=== PATIENT | male | born 1975 | race African-American/Black ===

== ENCOUNTER 2016-08-31 16:01 | Emergency (ER) | payer OTHER ==
--- NOTE | 2016-08-31 17:14 | ED.PDOC ---
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 Timing/Duration: 1-3 hours Severity: severe Improving Factors: nothing Worsening Factors: nothing Associated Symptoms: other - unavailable patient on ventilator non verbal Allergies/Adverse Reactions: Allergies NO KNOWN ALLERGY Allergy (Verified 05/28/16 04:34) Home Medications: Ambulatory Orders Hydrocodone-Acetaminophen [Lortab 5-325 mg] 1 tab PO Q4H 01/03/15 Metoprolol Tartrate 12.5 mg PEG Q8H PRN 01/03/15 Ondansetron [Zofran Odt] 4 mg PO TID PRN 01/03/15 Aluminum/Magnesium/Simeth 200-200-20 mg/5Ml 30 ml PEG BID 01/26/15 Diazepam [Valium] 5 mg PO Q4H PRN 01/26/15 Ferrous Sulfate 5 ml PO DAILY 01/26/15 Levothyroxine Sodium [Synthroid] 25 mcg PO DAILY 01/26/15 Lorazepam 2 mg PO TID PRN 01/26/15 Magnesium Hydroxide [Milk Of Magnesia] 400 mg PO DAILY PRN 01/26/15 Miconazole Nitrate 2 % Topical 2 % TD BID 01/26/15 Sucralfate Suspension [Carafate Suspension] 1 gm PO QID 01/26/15 fentaNYL PATCH 50 MCG/HR [Duragesic Patch 50 MCG/HR] 50 mcg TD Q72H 01/26/15 Albuterol Sulfate Nebs [Proventil Nebs] 2.5 mg INH Q2H PRN 04/26/15 Ascorbic Acid [Vitamin C] 500 mg PO DAILY 04/26/15 Ferrous Sulfate 300 mg PO DAILY 04/26/15 Valproic Acid Syrup [Depakene Syrup] 5 ml PO TID 04/26/15 Atropine Sulfate (Ophthalmic) [Atropine Sulfate] 1 % SL Q4H PRN 08/04/16 Chlorhexidine Gluconate (Mouth [Chlorhexidine Gluconate] 0.12 % MT BID 08/04/16 Ipratropium/Albuterol [Duoneb] 3 ml INH Q6H 08/04/16 Multiple Vitamin [Multivitamins] 1 cap PO DAILY 08/04/16 Promethazine HCl 25 mg PO Q6H PRN 08/04/16 Review of Systems - Review of Systems Respiratory: States: other - tachypneic,crf,ventilator dependent Cardiology: States: other - tachycardia Past Medical History (General) - Patient Medical History Hx Seizures: Yes Hx Stroke: No Hx Dementia: No Hx Asthma: No Hx of COPD: Yes Hx Cardiac Disorders: Yes Hx Congestive Heart Failure: Yes Hx Pacemaker: No Hx Hypertension: Yes Hx Thyroid Disease: Yes Hx Diabetes: Yes Hx Gastroesophageal Reflux: Yes Hx Renal Disease: No Hx Cancer: No Hx of HIV: No Hx Hepatitis C: No Hx MRSA: Yes MRSA Source:: Wound - Vaccination History Hx Tetanus, Diphtheria Vaccination: No Hx Influenza Vaccination: No Hx Pneumococcal Vaccination: No - Social History Hx Tobacco Use: No Hx Chewing Tobacco Use: No Hx Alcohol Use: No Hx Substance Use: No Hx Substance Use Treatment: No Hx Depression: No Hx Physical Abuse: - unable to abtain Hx Emotional Abuse: No Hx Suspected Abuse: No - Activities of Daily Living Assisted/Assisted Living (if applicable):: [facility] - Female History Patient : No Family Medical History - Family History Mother Family History: Unknown Living Status: Still Living Physical Exam - Physical Exam General Appearance: Other - vegetative state Ears, Nose, Throat: other - dry oral mucosa Neck: other - contracture deformity Respiratory: rhonchi, other - ventilator Cardiovascular/Chest: no gallop, tachycardia Gastrointestinal/Abdominal: no organomegaly, no pulsatile mass Back Exam: other - pressure ulcer g4 Extremity: other - below knee amputation right,contracture deformities Neurologic: other - vegetative state,unresponsive to painful stimulus Skin Exam: warm/dry Progress - Results/Orders Results/Orders: 08/31/16 18:15 URINALYSIS Stat 08/31/16 18:42 Heparin Premix [Heparin/D5w 25,000U/500ML] 500 ml IV ONCE Laboratory Results WBC 13.3 K/mm3 (4.8-10.8) H 08/31/16 17:44 RBC 4.40 M/mm3 (4.70-6.10) L 08/31/16 17:44 Hgb 11.5 gm/dL (14.0-18.0) L 08/31/16 17:44 Hct 37.0 % (42.0-52.0) L 08/31/16 17:44 MCV 83.9 fl (80.0-94.0) 08/31/16 17:44 MCH 26.1 pg (27.0-31.0) L 08/31/16 17:44 MCHC 31.1 g/dL (33.0-37.0) L 08/31/16 17:44 RDW 15.5 % (11.5-14.5) H 08/31/16 17:44 Plt Count 344 K/mm3 (130-400) 08/31/16 17:44 MPV 8.6 fl (7.40-10.4) 08/31/16 17:44 Absolute Neuts (auto) 11.60 K/uL (1.8-6.8) H 08/31/16 17:44 Absolute Lymphs (auto) 1.00 K/uL (1.0-3.4) 08/31/16 17:44 Absolute Monos (auto) 0.50 K/uL (0.2-0.8) 08/31/16 17:44 Absolute Eos (auto) 0.00 K/uL (0.0-0.4) 08/31/16 17:44 Absolute Basos (auto) 0.10 K/uL (0.0-0.1) 08/31/16 17:44 Neutrophils % 87.5 % (42.0-78.0) H 08/31/16 17:44 Lymphocytes % 7.9 % (20.0-50.0) L 08/31/16 17:44 Monocytes % 4.0 % (2.0-9.0) 08/31/16 17:44 Eosinophils % 0.2 % (1.0-5.0) L 08/31/16 17:44 Basophils % 0.4 % (0.0-2.0) 08/31/16 17:44 PT 13.3 SECONDS (9.4-12.5) H 08/31/16 17:44 INR 1.180 08/31/16 17:44 PTT (SP) 47.3 SECONDS (25.1-36.5) H 08/31/16 17:44 Sodium 141 mmol/L (135-145) 08/31/16 17:44 Potassium 3.6 mmol/L (3.6-5.0) 08/31/16 17:44 Chloride 102 mmol/L (101-111) 08/31/16 17:44 Carbon Dioxide 27 mmol/L (21-31) 08/31/16 17:44 Anion Gap 15.6 (12-18) 08/31/16 17:44 BUN 24 mg/dL (7-18) H 08/31/16 17:44 Creatinine 0.61 mg/dL (0.6-1.3) 08/31/16 17:44 BUN/Creatinine Ratio 39.3 (10-20) H 08/31/16 17:44 Random Glucose 93 mg/dL (70-105) 08/31/16 17:44 Serum Osmolality 285.0 mOsm/L (275-295) 08/31/16 17:44 Calcium 9.7 mg/dL (8.4-10.2) 08/31/16 17:44 Magnesium 1.9 mg/dL (1.8-2.5) 08/31/16 17:44 Total Bilirubin 0.4 mg/dL (0.2-1.0) 08/31/16 17:44 AST 32 IU/L (10-42) 08/31/16 17:44 ALT 36 IU/L (10-60) 08/31/16 17:44 Alkaline Phosphatase 145 IU/L (42-121) H 08/31/16 17:44 Creatine Kinase 83 IU/L (38-174) 08/31/16 17:44 CK-MB (CK-2) 3.4 ng/mL (0.0-4.4) 08/31/16 17:44 CK-MB (CK-2) % Not Reportable 08/31/16 17:44 Troponin I 0.06 ng/mL (0.01-0.05) H 08/31/16 17:44 B-Natriuretic Peptide 822.0 pg/ml (0-100) H* 08/31/16 17:44 Serum Total Protein 8.3 gm/dL (6.4-8.2) H 08/31/16 17:44 Albumin 3.1 g/dl (3.2-5.5) L 08/31/16 17:44 Globulin 5.2 gm/dL (2.3-3.5) H 08/31/16 17:44 Albumin/Globulin Ratio 0.6 (1.1-1.9) L 08/31/16 17:44 - EKG/XRAY/CT EKG: Tachy, ST elevation, Abnormal Q waves Departure - Departure Clinical Impression: Myocardial infarction of inferolateral wall, Anoxic brain damage, not elsewhere classified, Ventilator dependent Respiratory failure, chronic Qualifiers: Respiratory failure complication: unspecified whether with hypoxia or hypercapnia Qualifier Code: (J96.10) Chronic respiratory failure, unspecified whether with hypoxia or hypercapnia Time of Disposition: 22:08 - D/W Dr. Herring-MARGOTH LYONS Disposition: Transfer to Hospital Departure Forms: ED Discharge - Pt. Copy, Patient Portal Self Enrollment Referrals: ALPHONSE LA [Primary Care Provider] - 1-2 Weeks Home Medications: Ambulatory Orders Hydrocodone-Acetaminophen [Lortab 5-325 mg] 1 tab PO Q4H 01/03/15 Metoprolol Tartrate 12.5 mg PEG Q8H PRN 01/03/15 Ondansetron [Zofran Odt] 4 mg PO TID PRN 01/03/15 Aluminum/Magnesium/Simeth 200-200-20 mg/5Ml 30 ml PEG BID 01/26/15 Diazepam [Valium] 5 mg PO Q4H PRN 01/26/15 Ferrous Sulfate 5 ml PO DAILY 01/26/15 Levothyroxine Sodium [Synthroid] 25 mcg PO DAILY 01/26/15 Lorazepam 2 mg PO TID PRN 01/26/15 Magnesium Hydroxide [Milk Of Magnesia] 400 mg PO DAILY PRN 01/26/15 Miconazole Nitrate 2 % Topical 2 % TD BID 01/26/15 Sucralfate Suspension [Carafate Suspension] 1 gm PO QID 01/26/15 fentaNYL PATCH 50 MCG/HR [Duragesic Patch 50 MCG/HR] 50 mcg TD Q72H 01/26/15 Albuterol Sulfate Nebs [Proventil Nebs] 2.5 mg INH Q2H PRN 04/26/15 Ascorbic Acid [Vitamin C] 500 mg PO DAILY 04/26/15 Ferrous Sulfate 300 mg PO DAILY 04/26/15 Valproic Acid Syrup [Depakene Syrup] 5 ml PO TID 04/26/15 Atropine Sulfate (Ophthalmic) [Atropine Sulfate] 1 % SL Q4H PRN 08/04/16 Chlorhexidine Gluconate (Mouth [Chlorhexidine Gluconate] 0.12 % MT BID 08/04/16 Ipratropium/Albuterol [Duoneb] 3 ml INH Q6H 08/04/16 Multiple Vitamin [Multivitamins] 1 cap PO DAILY 08/04/16 Promethazine HCl 25 mg PO Q6H PRN 08/04/16
--- NOTE | 2016-08-31 17:39 | RAD ---
EXAM DESCRIPTION: XR CHEST 1 VIEW CLINICAL HISTORY: sob COMPARISON: August 04, 2016. FINDINGS: Cardiac silhouette is enlarged, unchanged compared with the prior exam. Patient is rotated. There is a tracheostomy tube. Abnormal opacity in the left lower lung and blunted costophrenic angle is unchanged. There is indistinctness of the pulmonary vessels which could be secondary to pulmonary edema versus interstitial lung disease, this is unchanged compared with the prior examination. There is mild blunting of the right costophrenic angle. There is no pneumothorax. IMPRESSION: Indistinctness of the pulmonary vessels could be secondary to pulmonary edema. Similar findings were noted in the prior exam. Blunted left costophrenic angle and increased opacity in the left lower lung is unchanged compared with the prior exam and could be secondary to pleural fluid and atelectasis. There is mild blunting of the right costophrenic angle which could also represent small amount of pleural fluid. Electronically signed by: Paul Hurt 08/31/2016 17:37
[2016-08-31] MEDS ORDERED: HEPARIN PREMIX 500 ML IV ONE (18:42)
[2016-08-31] MEDS ORDERED: HEPARIN SODIUM (PORCINE) 5,000 U/ML VIAL IV ONE (18:44)
[2016-08-31] MEDS ORDERED: HEPARIN PREMIX 500 ML IV SCH (18:45)
[2016-08-31 22:10] VITALS: O2SAT 98
[2016-08-31 22:35] VITALS: BP 118/58; TEMP 98.9
== END 2016-08-31 22:35 | disposition short-term general hospital (02) ==
LOC: ER 16:01
DX: I21.19 ST elevation (STEMI) myocardial infarction involving other coronary artery of inferior wall (principal); G93.1 Anoxic brain damage, not elsewhere classified; Z99.11 Dependence on respirator [ventilator] status; J96.10 Chronic respiratory failure, unspecified whether with hypoxia or hypercapnia; Z79.899 Other long term (current) drug therapy; J44.9 Chronic obstructive pulmonary disease, unspecified; I11.0 Hypertensive heart disease with heart failure; I50.9 Heart failure, unspecified; E07.9 Disorder of thyroid, unspecified; E11.9 Type 2 diabetes mellitus without complications; K21.9 Gastro-esophageal reflux disease without esophagitis; Z86.14 Personal history of Methicillin resistant Staphylococcus aureus infection
CPT/HCPCS: 36415; 71010; 80048; 80053; 82550; 82553; 83880; 84484; 85025; 85610; 85730; 93005; 94002; J1644

== ENCOUNTER 2016-12-25 13:46 | Emergency (ER) | payer OTHER ==
[2016-12-25] MEDS ORDERED: IBUPROFEN SUSP 100 MG/5 ML UD GT ONE (13:52)
[2016-12-25] MEDS ORDERED: METOPROLOL TARTRATE INJ 5 MG/5 ML VIAL IV ONE (13:59)
[2016-12-25] MEDS ORDERED: SODIUM CHLORIDE 0.9% 1000ML 750 ML IVS ONE (14:00)
[2016-12-25] MEDS ORDERED: CEFEPIME 2 GM in SODIUM CHL 0.9% 50ML MIN-BAG+ 50 ML IVPB ONE (14:01)
[2016-12-25] MEDS ORDERED: SODIUM CHL 0.9% 50ML MIN-BAG+ 0 ML IVPB ONE (14:59)
[2016-12-25] MEDS ORDERED: CEFEPIME 2 GM VIAL IVPB ONE ×2 (14:59→15:07)
--- NOTE | 2016-12-25 15:03 | RAD ---
Obstructive series 2 view abdomen and chest INDICATION: Fever ventilator dependent IMPRESSION: Comparison is from May 24, 2016. Interval improvement in the lungs with persistent atelectasis and mild infiltrate in the left base. Cardiomegaly. Tracheostomy tube in place with tip just above the violet. No free air identified. No pneumothorax. Vascular stents/grafts are noted in the abdomen. No abdominal obstruction. There is a prominent volume of stool in the central pelvis/rectal region. Electronically signed by: Sedrick Pryor MD 12/25/2016 3:03 PM CDT
[2016-12-25] MEDS ORDERED: SODIUM CHL 0.9% 50ML MIN-BAG+ 50 ML IVPB ONE (15:07)
[2016-12-25] MEDS ORDERED: IBUPROFEN SUSP 100 MG/5 ML UD PO ONE (15:24)
[2016-12-25] MEDS ORDERED: IBUPROFEN SUSP 100 MG/5 ML UD ONE (15:24)
[2016-12-25] MEDS ORDERED: SODIUM CHLORIDE 0.9% 1000ML 1,000 ML IVS ONE (16:15)
[2016-12-25] MEDS ORDERED: methylPREDNISolone SODIUM SUC 125 MG/2 ML VIAL IV ONE (16:15)
[2016-12-25] MEDS ORDERED: FLUCONAZOLE IV 200 MG in PREMIX BAG 1 BAG IVPB ONE (16:16)
[2016-12-25] MEDS ORDERED: SODIUM CHLORIDE 0.9% 1000ML 1,000 ML ONE (16:16)
--- NOTE | 2016-12-25 16:19 | US ---
Abdominal sonogram Limited right upper quadrant INDICATION: Elevated liver functions fever abdominal pain TECHNIQUE: Grayscale sonogram with color Doppler right upper quadrant FINDINGS: IVC is normal in caliber. The right kidney is isoechoic with liver correlate with renal function as this is nonspecific in etiology but may represent parenchymal renal disease. The main portal vein appears patent. There is a globular region of calcified stones and sludge within the gallbladder. Additional sludge is noted near the neck. Gallbladder wall thickness is upper limits normal 2.5 mm. No pericholecystic edema/fluid. Common bile duct is normal less than 5 mm in diameter. The sludge and stones and gallbladder appear to be fixed. No definite soft tissue mass however. Follow-up may be useful to document movement of this to exclude an underlying lesion. The liver is enlarged measuring 19 cm in length the mid axillary line. This may relate to hepatic inflammation but is nonspecific. IMPRESSION: Enlarged liver Tumefactive sludge with stones in the gallbladder without active inflammation or wall thickening see above discussion Isoechoic right kidney correlate with renal function as this can be a sign of parenchymal renal disease Electronically signed by: Sedrick Pryor MD 12/25/2016 4:19 PM CDT
[2016-12-25] MEDS ORDERED: FLUCONAZOLE IV 100 ML IVPB ONE (16:41)
[2016-12-25] MEDS ORDERED: NOREPINEPHRINE BITARTRATE 4 MG in DEXTROSE 5% 250ML 250 ML IVPB ONE (17:04)
[2016-12-25] MEDS ORDERED: NOREPINEPHRINE BITARTRATE 4 MG/4 ML VIAL IVPB ONE (17:08)
[2016-12-25] MEDS ORDERED: DEXTROSE 5% 250ML 250 ML ONE (17:08)
[2016-12-25] MEDS ORDERED: VANCOMYCIN HCL INJ 1,000 MG in SODIUM CHLORIDE 0.9% 250ML 250 ML IVPB ONE (17:14)
[2016-12-25] MEDS ORDERED: VANCOMYCIN HCL INJ 1,000 MG VIAL IVPB ONE (17:25)
[2016-12-25] MEDS ORDERED: SODIUM CHLORIDE 0.9% 250ML 250 ML ONE (17:26)
--- NOTE | 2016-12-25 17:30 | ED.PDOC ---
History of Present Illness - General Chief Complaint: General Time Seen by Provider: 12/25/16 13:52 Source: EMS notes reviewed, [facility] Exam Limitations: clinical condition - History of Present Illness Initial Comments: The patient is a 41-year-old -English male presenting to the ER from the long-term ventilator care facility due to fever and tachycardia. The patient has had a history of multiple pneumonias and multiple urinary tract infections. He does have an indwelling Hobson catheter which urine is actually extremely cloudy. The patient had fever up to 102. Systolic blood pressures upon arrival were around 80. The patient was diaphoretic and tachycardic at around 150 bpm. It is a sinus tachycardia. Lungs are actually clear and he is maintaining an adequate oxygen saturation on his normal ventilator settings. The facility have given him a dose of Levaquin per his G-tube earlier in the day. They actually sent off a urinalysis 3 days ago but have not gotten a culture back on that. The patient is not exhibiting any evidence of pain with palpation of the abdomen. He does have a stage II ulcer posteriorly. This is not new. Lungs are actually fairly clear for this patient. Timing/Duration: 1 week Severity: severe Improving Factors: nothing Allergies/Adverse Reactions: Allergies NO KNOWN ALLERGY Allergy (Verified 05/28/16 04:34) Home Medications: Ambulatory Orders Hydrocodone-Acetaminophen [Lortab 5-325 mg] 1 tab PO Q4H 01/03/15 Metoprolol Tartrate 12.5 mg PEG Q8H PRN 01/03/15 Ondansetron [Zofran Odt] 4 mg PO TID PRN 01/03/15 Aluminum/Magnesium/Simeth 200-200-20 mg/5Ml 30 ml PEG BID 01/26/15 Diazepam [Valium] 5 mg PO Q4H PRN 01/26/15 Ferrous Sulfate 5 ml PO DAILY 01/26/15 Levothyroxine Sodium [Synthroid] 25 mcg PO DAILY 01/26/15 Lorazepam 2 mg PO TID PRN 01/26/15 Magnesium Hydroxide [Milk Of Magnesia] 400 mg PO DAILY PRN 01/26/15 Miconazole Nitrate 2 % Topical 2 % TD BID 01/26/15 Sucralfate Suspension [Carafate Suspension] 1 gm PO QID 01/26/15 fentaNYL PATCH 50 MCG/HR [Duragesic Patch 50 MCG/HR] 50 mcg TD Q72H 01/26/15 Albuterol Sulfate Nebs [Proventil Nebs] 2.5 mg INH Q2H PRN 04/26/15 Ascorbic Acid [Vitamin C] 500 mg PO DAILY 04/26/15 Ferrous Sulfate 300 mg PO DAILY 04/26/15 Valproic Acid Syrup [Depakene Syrup] 5 ml PO TID 04/26/15 Atropine Sulfate (Ophthalmic) [Atropine Sulfate] 1 % SL Q4H PRN 08/04/16 Chlorhexidine Gluconate (Mouth [Chlorhexidine Gluconate] 0.12 % MT BID 08/04/16 Ipratropium/Albuterol [Duoneb] 3 ml INH Q6H 08/04/16 Multiple Vitamin [Multivitamins] 1 cap PO DAILY 08/04/16 Promethazine HCl 25 mg PO Q6H PRN 08/04/16 Review of Systems - Review of Systems Review of Systems: 12/25/16 17:29 nable to obtain review of systems secondary to patient's chronic clinical condition. Past Medical History (General) - Patient Medical History Hx Seizures: Yes Hx Stroke: No Hx Dementia: No Hx Asthma: No Hx of COPD: Yes Hx Cardiac Disorders: Yes Hx Congestive Heart Failure: Yes Hx Pacemaker: No Hx Hypertension: Yes Hx Thyroid Disease: Yes Hx Diabetes: Yes Hx Gastroesophageal Reflux: Yes Hx Renal Disease: No Hx Cancer: No Hx of HIV: No Hx Hepatitis C: No Hx MRSA: Yes MRSA Source:: Wound - Vaccination History Hx Tetanus, Diphtheria Vaccination: No Hx Influenza Vaccination: No Hx Pneumococcal Vaccination: No - Social History Hx Tobacco Use: No Hx Chewing Tobacco Use: No Hx Alcohol Use: No Hx Substance Use: No Hx Substance Use Treatment: No Hx Depression: No Hx Physical Abuse: - unable to abtain Hx Emotional Abuse: No Hx Suspected Abuse: No - Female History Patient : No Family Medical History - Family History Mother Family History: Unknown Living Status: Still Living Physical Exam - Physical Exam General Appearance: Anxious, Ill Appearing - diaphoretic Eye Exam: bilateral normal Ears, Nose, Throat: normal ENT inspection - mucous membranes are mildly dry Neck: non-tender, full range of motion, supple - tracheostomy is in place Respiratory: chest non-tender, lungs clear - with the exception of chronic persistent bibasilar rales, no respiratory distress, no accessory muscle use - he is ventilator dependent of course Cardiovascular/Chest: normal peripheral pulses, no edema, tachycardia - A sinus tachycardia Peripheral Pulses: radial,right: 2+, radial,left: 2+ Gastrointestinal/Abdominal: other - moderately distended which is not unusual. No evidence of tenderness to palpation. G-tube is in place. Rectal Exam: deferred Back Exam: normal inspection - with the exception of the chronic decubitus ulcer Extremity: other - patient has decreased range of motion of his left lower extremity. 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 Neurologic: alert Skin Exam: diaphoresis Comments: Vital Signs - 8 hr 12/25/16 12/25/16 14:11 15:15 Respiratory 24 23 Rate Respiratory 20 23 Rate [Volume Control Data] O2 Sat by Pulse 94 L Oximetry Progress - Progress Progress: 12/25/16 17:34 the patient is a 41-year-old male presenting to the emergency room secondary to what appears to be urosepsis. The patient has received a dose of cefepime based on his last urine culture here. He should have a urine culture returning to his long-term care facility hopefully tomorrow as it was sent 3 days ago. The patient did receive a dose of Levaquin per G-tube from the facility earlier today. He does appear to have some hypotension with sepsis. He has had 2 L of IV fluids. We are starting low-dose levophed to maintain a systolic blood pressure preferably around 100. The patient does have significant sinus tachycardia which is not unusual with him. he does normally respond well to a beta brenden but his blood pressures are not high enough to give a small dose. He did receive a small dose of Ativan upon arrival here his anxiety does tend to cause his heart rate to accelerate. He does also have a history of increased liver function test with sustained tachycardia. He does having underlying enlargement of his liver on the ultrasound. The gallbladder ultrasound is fairly reassuring only showing some mild thickening of the gallbladder wall. No evidence of pneumonia at this time. Blood cultures have been performed. The patient is being transferred for higher level of care. - Results/Orders Results/Orders: Laboratory Tests 12/25/16 12/25/16 12/25/16 14:11 14:11 14:11 WBC 5.7 RBC 3.42 L Hgb 9.3 L Hct 28.8 L MCV 84.1 MCH 27.1 MCHC 32.5 L RDW 16.5 H Plt Count 122 L MPV 10.3 Absolute Neuts (auto) 5.40 Absolute Lymphs (auto) 0.30 L Absolute Monos (auto) 0.10 L Absolute Eos (auto) 0.00 Absolute Basos (auto) 0.00 Neutrophils % 93.7 H Lymphocytes % 4.6 L Monocytes % 1.2 L Eosinophils % 0.1 L Basophils % 0.4 PT 13.9 H INR 1.230 PTT (SP) 35.1 Sodium 135 Potassium 4.0 Chloride 100 L Carbon Dioxide 27 Anion Gap 12.0 BUN 38 H Creatinine 1.40 H BUN/Creatinine Ratio 27.1 H Random Glucose 79 Serum Osmolality 278.1 Lactic Acid Calcium 8.6 Total Bilirubin 1.0 AST 124 H ALT 155 H Alkaline Phosphatase 270 H Serum Total Protein 7.0 Albumin 2.7 L Globulin 4.3 H Albumin/Globulin Ratio 0.6 L Amylase 26 L Lipase 14 L Urine Color Urine Appearance Urine pH Ur Specific [place] Urine Protein Urine Glucose (UA) Urine Ketones Urine Blood Urine Nitrite Urine Bilirubin Urine Urobilinogen Ur Leukocyte Esterase Urine RBC Urine WBC Ur Epithelial Cells Urine Bacteria 12/25/16 12/25/16 14:11 16:30 WBC RBC Hgb Hct MCV MCH MCHC RDW Plt Count MPV Absolute Neuts (auto) Absolute Lymphs (auto) Absolute Monos (auto) Absolute Eos (auto) Absolute Basos (auto) Neutrophils % Lymphocytes % Monocytes % Eosinophils % Basophils % PT INR PTT (SP) Sodium Potassium Chloride Carbon Dioxide Anion Gap BUN Creatinine BUN/Creatinine Ratio Random Glucose Serum Osmolality Lactic Acid 2.2 Calcium Total Bilirubin AST ALT Alkaline Phosphatase Serum Total Protein Albumin Globulin Albumin/Globulin Ratio Amylase Lipase Urine Color Yellow Urine Appearance Cloudy Urine pH 5.5 Ur Specific [place] 1.015 Urine Protein >=300 H Urine Glucose (UA) Negative Urine Ketones Negative Urine Blood Moderate H Urine Nitrite Negative Urine Bilirubin Negative Urine Urobilinogen 1.0 Ur Leukocyte Esterase Large H Urine RBC 40-50 H Urine WBC Tntc H Ur Epithelial Cells 0 Urine Bacteria 4+ H abdominal series shows persistent atelectasis in the left lower lobe. Moderate stool in the lower abdomen. No evidence of obstruction. No evidence of perforation. Right upper quadrant ultrasound shows a moderately enlarged liver. There is question of parenchymal disease of the right kidney. Gallbladder shows a borderline wall thickness of 2.5 mm. There is some sludge and some stones in the gallbladder but no evidence of dilation of the common bile duct at 5 mm. No pericholecystic fluid or edema. Departure - Departure Clinical Impression: UTI (urinary tract infection) due to urinary indwelling Hobson catheter, Shock Sepsis Qualifiers: Sepsis type: sepsis due to unspecified organism Qualified Code(s): A41.9 - Sepsis, unspecified organism Disposition: Transfer to Hospital Referrals: ALPH[facility] [Primary Care Provider] - 1-2 Weeks Home Medications: Ambulatory Orders Hydrocodone-Acetaminophen [Lortab 5-325 mg] 1 tab PO Q4H 01/03/15 Metoprolol Tartrate 12.5 mg PEG Q8H PRN 01/03/15 Ondansetron [Zofran Odt] 4 mg PO TID PRN 01/03/15 Aluminum/Magnesium/Simeth 200-200-20 mg/5Ml 30 ml PEG BID 01/26/15 Diazepam [Valium] 5 mg PO Q4H PRN 01/26/15 Ferrous Sulfate 5 ml PO DAILY 01/26/15 Levothyroxine Sodium [Synthroid] 25 mcg PO DAILY 01/26/15 Lorazepam 2 mg PO TID PRN 01/26/15 Magnesium Hydroxide [Milk Of Magnesia] 400 mg PO DAILY PRN 01/26/15 Miconazole Nitrate 2 % Topical 2 % TD BID 01/26/15 Sucralfate Suspension [Carafate Suspension] 1 gm PO QID 01/26/15 fentaNYL PATCH 50 MCG/HR [Duragesic Patch 50 MCG/HR] 50 mcg TD Q72H 01/26/15 Albuterol Sulfate Nebs [Proventil Nebs] 2.5 mg INH Q2H PRN 04/26/15 Ascorbic Acid [Vitamin C] 500 mg PO DAILY 04/26/15 Ferrous Sulfate 300 mg PO DAILY 04/26/15 Valproic Acid Syrup [Depakene Syrup] 5 ml PO TID 04/26/15 Atropine Sulfate (Ophthalmic) [Atropine Sulfate] 1 % SL Q4H PRN 08/04/16 Chlorhexidine Gluconate (Mouth [Chlorhexidine Gluconate] 0.12 % MT BID 08/04/16 Ipratropium/Albuterol [Duoneb] 3 ml INH Q6H 08/04/16 Multiple Vitamin [Multivitamins] 1 cap PO DAILY 08/04/16 Promethazine HCl 25 mg PO Q6H PRN 08/04/16 Transfer to Outside Facility - Transfer Information Accepting Provider:: dr walker Accepting Facility: [facility] Reason for Transfer: ICU
[2016-12-25 17:59] VITALS: TEMP 101.6
[2016-12-25 18:17] VITALS: BP 102/42; O2SAT 97
== END 2016-12-25 18:45 | disposition short-term general hospital (02) ==
LOC: ER 13:46
DX: T83.511A Infection and inflammatory reaction due to indwelling urethral catheter, initial encounter (principal); A41.9 Sepsis, unspecified organism; Z99.11 Dependence on respirator [ventilator] status; R00.0 Tachycardia, unspecified; Z79.899 Other long term (current) drug therapy; J44.9 Chronic obstructive pulmonary disease, unspecified; I11.0 Hypertensive heart disease with heart failure; I50.9 Heart failure, unspecified; E03.9 Hypothyroidism, unspecified; K21.9 Gastro-esophageal reflux disease without esophagitis; Z86.14 Personal history of Methicillin resistant Staphylococcus aureus infection
CPT/HCPCS: 36415; 74020; 76775; 80053; 81001; 82150; 83605; 83690; 85025; 85610; 85730; 87040; 87086; 87088; 87186; 87804; 94002; 94770; J0692; J1450; J2060; J2930; J3370; J7030; J7050; J7060

== ENCOUNTER 2016-12-29 13:35 | Emergency (ER) | payer OTHER ==
[2016-12-29] MEDS ORDERED: POTASSIUM CHLORIDE IV ONE (14:37)
[2016-12-29] MEDS ORDERED: DEXTROSE 5% IV ONE (14:37)
--- NOTE | 2016-12-29 14:47 | ED.PDOC ---
History of Present Illness - General Chief Complaint: General Stated Complaint: Staff is uncomfortable taking care of the patient Time Seen by Provider: 12/29/16 13:35 Source: RN notes reviewed, Vital Signs reviewed, RN/MD Exam Limitations: clinical condition - History of Present Illness Initial Comments: Patient sent from chronic care facility due to gastroparesis. Patient was discharged from [facility] yesterday with diagnosis of urosepsis on appropriate antibiotics. Nurse noticed this morning his abdomen appeared distended and found he had a 700cc residual in his stomach so his feeding tube was stopped for 6 hours. He continued to have a 500cc residual. Physician is concerned about obstruction and that he may be getting worse in regards to his sepsis. His WBC count at discharge from [facility] was 14. Patient is on Vent and is noncommunicative. Timing/Duration: 24 hours Severity: mild Improving Factors: medication Worsening Factors: nothing Allergies/Adverse Reactions: Allergies NO KNOWN ALLERGY Allergy (Verified 05/28/16 04:34) Home Medications: Ambulatory Orders Hydrocodone-Acetaminophen [Lortab 5-325 mg] 1 tab PO Q4H 01/03/15 Metoprolol Tartrate 12.5 mg PEG Q8H PRN 01/03/15 Ondansetron [Zofran Odt] 4 mg PO TID PRN 01/03/15 Aluminum/Magnesium/Simeth 200-200-20 mg/5Ml 30 ml PEG BID 01/26/15 Diazepam [Valium] 5 mg PO Q4H PRN 01/26/15 Ferrous Sulfate 5 ml PO DAILY 01/26/15 Levothyroxine Sodium [Synthroid] 25 mcg PO DAILY 01/26/15 Lorazepam 2 mg PO TID PRN 01/26/15 Magnesium Hydroxide [Milk Of Magnesia] 400 mg PO DAILY PRN 01/26/15 Miconazole Nitrate 2 % Topical 2 % TD BID 01/26/15 Sucralfate Suspension [Carafate Suspension] 1 gm PO QID 01/26/15 fentaNYL PATCH 50 MCG/HR [Duragesic Patch 50 MCG/HR] 50 mcg TD Q72H 01/26/15 Albuterol Sulfate Nebs [Proventil Nebs] 2.5 mg INH Q2H PRN 04/26/15 Ascorbic Acid [Vitamin C] 500 mg PO DAILY 04/26/15 Ferrous Sulfate 300 mg PO DAILY 04/26/15 Valproic Acid Syrup [Depakene Syrup] 5 ml PO TID 04/26/15 Atropine Sulfate (Ophthalmic) [Atropine Sulfate] 1 % SL Q4H PRN 08/04/16 Chlorhexidine Gluconate (Mouth [Chlorhexidine Gluconate] 0.12 % MT BID 08/04/16 Ipratropium/Albuterol [Duoneb] 3 ml INH Q6H 08/04/16 Multiple Vitamin [Multivitamins] 1 cap PO DAILY 08/04/16 Promethazine HCl 25 mg PO Q6H PRN 08/04/16 Review of Systems - Review of Systems Unable to Obtain Due To: condition, intubated Past Medical History (General) - Patient Medical History Hx Seizures: Yes Hx Stroke: No Hx Dementia: No Hx Asthma: No Hx of COPD: Yes Hx Cardiac Disorders: Yes Hx Congestive Heart Failure: Yes Hx Pacemaker: No Hx Hypertension: Yes Hx Thyroid Disease: Yes Hx Diabetes: Yes Hx Gastroesophageal Reflux: Yes Hx Renal Disease: No Hx Cancer: No Hx of HIV: No Hx Hepatitis C: No Hx MRSA: Yes MRSA Source:: Wound - Vaccination History Hx Tetanus, Diphtheria Vaccination: No Hx Influenza Vaccination: No Hx Pneumococcal Vaccination: No - Social History Hx Tobacco Use: No Hx Chewing Tobacco Use: No Hx Alcohol Use: No Hx Substance Use: No Hx Substance Use Treatment: No Hx Depression: No Hx Physical Abuse: - unable to abtain Hx Emotional Abuse: No Hx Suspected Abuse: No - Activities of Daily Living Shelter/Assisted Living (if applicable):: [facility] - Female History Patient : No Family Medical History - Family History Mother Family History: Unknown Living Status: Still Living Physical Exam - Physical Exam General Appearance: No apparent distress Respiratory: chest non-tender, lungs clear, normal breath sounds, no respiratory distress - No Vent Cardiovascular/Chest: regular rate, rhythm, no edema, no gallop, no murmur Gastrointestinal/Abdominal: normal bowel sounds, non tender, soft, mass - Pulsitile mass RLQ Neurologic: other - Intubated and unresponsive Progress - Progress Progress: 12/29/16 17:45 Sodium is improved @ 147, Cl still up slightly @ 116. No obstruction or cause for his gastroparesis. Spoke with Stephenie @ [facility] regarding transferring patient back and need for him to receive water through his peg tube. - Results/Orders Results/Orders: Laboratory Tests 12/29/16 12/29/16 14:00 14:00 WBC 13.0 H RBC 3.42 L Hgb 9.2 L Hct 28.8 L MCV 84.3 MCH 26.9 L MCHC 31.9 L RDW 16.4 H Plt Count 174 MPV 9.8 Absolute Neuts (auto) 10.70 H Absolute Lymphs (auto) 1.40 Absolute Monos (auto) 0.80 Absolute Eos (auto) 0.00 Absolute Basos (auto) 0.10 Neutrophils % 82.0 H Lymphocytes % 10.9 L Monocytes % 6.4 Eosinophils % 0.2 L Basophils % 0.5 Sodium 151 H Potassium 3.3 L Chloride 117 H* Carbon Dioxide 27 Anion Gap 10.3 L BUN 35 H Creatinine 0.69 BUN/Creatinine Ratio 50.7 H Random Glucose 106 H Serum Osmolality 308.2 H Calcium 8.6 Total Bilirubin 0.6 AST 21 ALT 75 H Alkaline Phosphatase 159 H Serum Total Protein 6.6 Albumin 2.5 L Globulin 4.1 H Albumin/Globulin Ratio 0.6 L - EKG/XRAY/CT XRAY: abdomen - Stable except resolution of fecal impaction Departure - Departure Clinical Impression: Dehydration, Nondiabetic gastroparesis Time of Disposition: 17:47 Disposition: Discharge to SNF Condition: Fair Departure Forms: ED Discharge - Pt. Copy, Patient Portal Self Enrollment Instructions: DI for Dehydration -- Adult, Gastroparesis Diet: resume usual diet Referrals: ALPHONSE [facility] [Primary Care Provider] - 1-2 Weeks Home Medications: Ambulatory Orders Hydrocodone-Acetaminophen [Lortab 5-325 mg] 1 tab PO Q4H 01/03/15 Metoprolol Tartrate 12.5 mg PEG Q8H PRN 01/03/15 Ondansetron [Zofran Odt] 4 mg PO TID PRN 01/03/15 Aluminum/Magnesium/Simeth 200-200-20 mg/5Ml 30 ml PEG BID 01/26/15 Diazepam [Valium] 5 mg PO Q4H PRN 01/26/15 Ferrous Sulfate 5 ml PO DAILY 01/26/15 Levothyroxine Sodium [Synthroid] 25 mcg PO DAILY 01/26/15 Lorazepam 2 mg PO TID PRN 01/26/15 Magnesium Hydroxide [Milk Of Magnesia] 400 mg PO DAILY PRN 01/26/15 Miconazole Nitrate 2 % Topical 2 % TD BID 01/26/15 Sucralfate Suspension [Carafate Suspension] 1 gm PO QID 01/26/15 fentaNYL PATCH 50 MCG/HR [Duragesic Patch 50 MCG/HR] 50 mcg TD Q72H 01/26/15 Albuterol Sulfate Nebs [Proventil Nebs] 2.5 mg INH Q2H PRN 04/26/15 Ascorbic Acid [Vitamin C] 500 mg PO DAILY 04/26/15 Ferrous Sulfate 300 mg PO DAILY 04/26/15 Valproic Acid Syrup [Depakene Syrup] 5 ml PO TID 04/26/15 Atropine Sulfate (Ophthalmic) [Atropine Sulfate] 1 % SL Q4H PRN 08/04/16 Chlorhexidine Gluconate (Mouth [Chlorhexidine Gluconate] 0.12 % MT BID 08/04/16 Ipratropium/Albuterol [Duoneb] 3 ml INH Q6H 08/04/16 Multiple Vitamin [Multivitamins] 1 cap PO DAILY 08/04/16 Promethazine HCl 25 mg PO Q6H PRN 08/04/16
[2016-12-29] MEDS ORDERED: DEXTROSE 5% IVPB ONE (14:59)
--- NOTE | 2016-12-29 15:13 | RAD ---
EXAM DESCRIPTION: XR ABDOMEN 1 VIEW (KUB) CLINICAL HISTORY: Elevated LFTs with fever and abdominal pain-possible obstruction. COMPARISON: December 25, 2016 TECHNIQUE: KUB FINDINGS: Overall increased hazy density over the abdomen is stable since the comparison study. There is no dilated bowel. Fecal impaction appears to have resolved. No mass or calculus is noted. IMPRESSION: Somewhat distended appearing abdomen stable since previous but with resolution of fecal impaction Electronically signed by: Brandon Rubio MD 12/29/2016 2:57 PM CDT
[2016-12-29] MEDS ORDERED: DEXTROSE 5% 1000ML 1,000 ML IVS ONE (15:15)
[2016-12-29] MEDS ORDERED: POTASSIUM CHLORIDE 40mEq 20ML VIAL ONE (15:16)
[2016-12-29] MEDS ORDERED: HEPARIN SODIUM 100 U/ML 5 ML SYG IV ONE (15:24)
[2016-12-29 15:58] VITALS: O2SAT 99
[2016-12-29 19:02] VITALS: BP 116/59
[2016-12-29 19:07] VITALS: TEMP 98.9
== END 2016-12-29 18:10 ==
LOC: ER 13:35
DX: K31.84 Gastroparesis (principal); Z99.11 Dependence on respirator [ventilator] status; Z93.1 Gastrostomy status; J44.9 Chronic obstructive pulmonary disease, unspecified; I11.0 Hypertensive heart disease with heart failure; I50.9 Heart failure, unspecified; E07.9 Disorder of thyroid, unspecified; K21.9 Gastro-esophageal reflux disease without esophagitis; E11.9 Type 2 diabetes mellitus without complications; Z86.14 Personal history of Methicillin resistant Staphylococcus aureus infection; Z79.899 Other long term (current) drug therapy
CPT/HCPCS: 36415; 74000; 80048; 80053; 85025; 94002; J1642; J3480; J7060

== ENCOUNTER 2016-12-31 13:17 | Emergency (ER) | payer OTHER ==
[2016-12-31 13:29] VITALS: TEMP 97.7; O2SAT 100
--- NOTE | 2016-12-31 14:00 | RAD ---
History: Left effusion. Chest x-ray: AP portable film is obtained and compared with 08/31/2016 study. Trach tube is in place. Patient is rotated on this exam. Patchy infiltrative changes in the left upper lung are partially demonstrated with improvement noted on the right when compared to prior study. No definite pleural effusion is seen. Aortic stent is partially visualized. Diffuse osteopenia. IMPRESSION: Patchy left upper lung infiltrative changes since August with improved aeration on the right. Electronically signed by: Ely Ferguson MD 12/31/2016 1:56 PM CDT
[2016-12-31] MEDS ORDERED: IPRATROPIUM/ALBUTEROL 3 ML VIAL NEB ONE (14:25)
[2016-12-31] MEDS ORDERED: ACETYLCYSTEIN 20 % 6,000 MG/30 ML VIAL NEB ONE (14:26)
--- NOTE | 2016-12-31 14:52 | CT ---
EXAM DESCRIPTION: Chest w/o Contrast CLINICAL HISTORY: 41 years,Male,left lung abnormality COMPARISON: January 20, 2016 TECHNIQUE: Multiple axial helical tomographic images were obtained of the chest with out IV contrast, then reconstructed in the sagittal and coronal plane. This exam was performed using radiation doses that are As Low As Reasonably Achievable (ALARA). FINDINGS: Lung barone demonstrate consolidation and volume loss in the left posterior base. A small pleural effusion. Patchy opacity seen in the anterior left. And small patchy opacities seen in the right base. No pneumothoraces. Mediastinum demonstrates no adenopathy or masses. But difficult to evaluate due to lack of IV contrast. Heart size and pulmonary vascularity demonstrates enlargement of the heart with a pacemaker Upper abdominal organs included in the exam are unremarkable. Stent seen in the abdominal aorta partially included Soft tissues and bony elements are unremarkable. Tracheostomy tube once again seen in place IMPRESSION: Processes of probable pneumonia in the left posterior base of the degree of atelectasis. And patchy changes in the right base also could be due to pneumonia. But compared to prior study knee appears improved. Severe, and a small left pleural effusion. And some mild haziness in lung barone cannot exclude a degree of congestive heart failure. Electronically signed by: Jarrod Santiago MD 12/31/2016 2:51 PM CDT
[2016-12-31] MEDS ORDERED: SULFA/TRIMETH 800/160 (DS) TAB 1 EA TAB GT ONE (16:07)
[2016-12-31] MEDS ORDERED: CEFEPIME 2 GM in SODIUM CHL 0.9% 50ML MIN-BAG+ 50 ML IVPB ONE (16:07)
[2016-12-31] MEDS ORDERED: AZITHROMYCIN IV 500 MG in SODIUM CHLORIDE 0.9% 250ML 250 ML IVPB ONE (16:07)
[2016-12-31] MEDS ORDERED: SODIUM CHL 0.9% 50ML MIN-BAG+ 50 ML IVPB ONE (16:13)
[2016-12-31] MEDS ORDERED: CEFEPIME 2 GM VIAL IVPB ONE (16:14)
[2016-12-31] MEDS ORDERED: AZITHROMYCIN IV 500 MG VIAL IVPB ONE (16:31)
[2016-12-31] MEDS ORDERED: SODIUM CHLORIDE 0.9% 250ML 250 ML ONE (16:31)
--- NOTE | 2016-12-31 17:01 | ED.PDOC ---
History of Present Illness - General Chief Complaint: General Stated Complaint: sent over for abnormal chest x-ray Time Seen by Provider: 12/31/16 13:22 Source: patient Exam Limitations: clinical condition - History of Present Illness Initial Comments: the patient is a 41-year-old -[place] male sent to the emergency room from the [facility] by request the family. The patient recently has been treated for urosepsis and a left-sided pneumonia with IV Rocephin and oral Levaquin. It appears that he has completed the course of oral Levaquin. The repeat x-ray performed had shown some increased consolidation in the left lower lobe. His vital signs have been stable and he has been oxygenating well on his ventilator settings that are routine. He is still under treatment with Rocephin for the Escherichia coli that grew out of his urine and out of his blood. Vital signs have been essentially normal here. He is not in any respiratory distress. He is oxygenating well. He is not even tachycardic which is rare. He does have left-sided rails as would be expected. Timing/Duration: unsure Severity: mild Improving Factors: nothing Worsening Factors: nothing Allergies/Adverse Reactions: Allergies NO KNOWN ALLERGY Allergy (Verified 05/28/16 04:34) Home Medications: Ambulatory Orders Hydrocodone-Acetaminophen [Lortab 5-325 mg] 1 tab PO Q4H 01/03/15 Metoprolol Tartrate 12.5 mg PEG Q8H PRN 01/03/15 Ondansetron [Zofran Odt] 4 mg PO TID PRN 01/03/15 Aluminum/Magnesium/Simeth 200-200-20 mg/5Ml 30 ml PEG BID 01/26/15 Diazepam [Valium] 5 mg PO Q4H PRN 01/26/15 Ferrous Sulfate 5 ml PO DAILY 01/26/15 Levothyroxine Sodium [Synthroid] 25 mcg PO DAILY 01/26/15 Lorazepam 2 mg PO TID PRN 01/26/15 Magnesium Hydroxide [Milk Of Magnesia] 400 mg PO DAILY PRN 01/26/15 Miconazole Nitrate 2 % Topical 2 % TD BID 01/26/15 Sucralfate Suspension [Carafate Suspension] 1 gm PO QID 01/26/15 fentaNYL PATCH 50 MCG/HR [Duragesic Patch 50 MCG/HR] 50 mcg TD Q72H 01/26/15 Albuterol Sulfate Nebs [Proventil Nebs] 2.5 mg INH Q2H PRN 04/26/15 Ascorbic Acid [Vitamin C] 500 mg PO DAILY 04/26/15 Ferrous Sulfate 300 mg PO DAILY 04/26/15 Valproic Acid Syrup [Depakene Syrup] 5 ml PO TID 04/26/15 Atropine Sulfate (Ophthalmic) [Atropine Sulfate] 1 % SL Q4H PRN 08/04/16 Chlorhexidine Gluconate (Mouth [Chlorhexidine Gluconate] 0.12 % MT BID 08/04/16 Ipratropium/Albuterol [Duoneb] 3 ml INH Q6H 08/04/16 Multiple Vitamin [Multivitamins] 1 cap PO DAILY 08/04/16 Promethazine HCl 25 mg PO Q6H PRN 08/04/16 Review of Systems - Review of Systems Review of Systems: 12/31/16 17:01 unable to obtain due to patient clinical condition Past Medical History (General) - Patient Medical History Hx Seizures: Yes Hx Stroke: No Hx Dementia: No Hx Asthma: No Hx of COPD: Yes Hx Cardiac Disorders: Yes Hx Congestive Heart Failure: Yes Hx Pacemaker: No Hx Hypertension: Yes Hx Thyroid Disease: Yes Hx Diabetes: Yes Hx Gastroesophageal Reflux: Yes Hx Renal Disease: No Hx Cancer: No Hx of HIV: No Hx Hepatitis C: No Hx MRSA: Yes MRSA Source:: Wound - Vaccination History Hx Tetanus, Diphtheria Vaccination: No Hx Influenza Vaccination: No Hx Pneumococcal Vaccination: No - Social History Hx Tobacco Use: No Hx Chewing Tobacco Use: No Hx Alcohol Use: No Hx Substance Use: No Hx Substance Use Treatment: No Hx Depression: No Hx Physical Abuse: - unable to abtain Hx Emotional Abuse: No Hx Suspected Abuse: No - Activities of Daily Living [facility]isted Living (if applicable):: [facility] - Female History Patient : No Family Medical History - Family History Mother Family History: Unknown Living Status: Still Living Physical Exam - Physical Exam General Appearance: Alert, Comfortable, No apparent distress, Other - the patient is of course still a quadriplegic and is unable to communicate other than with some very basic facial expressions Eye Exam: bilateral normal Ears, Nose, Throat: normal ENT inspection, normal pharynx Neck: non-tender, other - he does have chronic limited range of motion. Tracheostomy is in place. Respiratory: chest non-tender, no respiratory distress, no accessory muscle use , other - he does have some left-sided rales and rhonchi which are not new. Cardiovascular/Chest: normal peripheral pulses, regular rate, rhythm, no edema Peripheral Pulses: radial,right: 2+, radial,left: 2+ Gastrointestinal/Abdominal: non tender, soft, other - PEG tube is in place. No evidence of discomfort to palpation. 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 Neurologic: alert, normal mood/affect - for this patient Skin Exam: normal color - chronic decubitus as stated above Comments: Vital Signs - 24 hr 12/31/16 12/31/16 12/31/16 13:24 14:12 15:00 Temperature 97.7 F Pulse Rate [ 67 67 64 Left Brachial] Respiratory 12 14 14 Rate Respiratory 20 Rate [Volume Control Data] Blood Pressure 133/61 128/61 120/64 [Left Arm] O2 Sat by Pulse 100 100 100 Oximetry 12/31/16 12/31/16 12/31/16 15:20 16:00 16:58 Temperature Pulse Rate [ 71 Left Brachial] Respiratory 14 Rate Respiratory 20 21 Rate [Volume Control Data] Blood Pressure 132/76 [Left Arm] O2 Sat by Pulse 100 Oximetry Progress - Progress Progress: 12/31/16 17:04 the patient is a 41-year-old -[place]ian male brought into the emergency room secondary to concern for recurrent pneumonia. Clinically the patient is doing well. Vital signs are stable. He is not requiring an increase in his ventilator settings. White blood cell count is reassuring. Blood and sputum cultures have been obtained. CT scan of the chest does show some left lung consolidation but this is consistent with maturation of the pneumonia seen on the x-ray when he was sent over for sepsis last week. We will change the patient's Rocephin over to cefepime 1 g IV twice daily for 5 days. this should help cover for the possibility of Pseudomonas better. It also still covers the Escherichia coli that grew out of the urine and blood cultures from his sepsis. He will also receive azithromycin 500 mg IV daily for 5 days. he will be placed on Bactrim DS 1 tablet twice daily per PEG tube for 5 days. The patient should have aggressive pulmonary toilet performed. He is to be sent back to the emergency room for any acute worsening. He should see his primary care doctor at the facility tomorrow before the weekend. He does have a PICC line already for the antibiotics above. At this time there is nothing that a hospital can do for him that his long-term care facility cannot provide in his current condition. - Results/Orders Results/Orders: Laboratory Tests 12/31/16 12/31/16 15:25 15:25 WBC 10.4 RBC 3.19 L Hgb 8.6 L Hct 27.3 L MCV 85.6 MCH 26.9 L MCHC 31.7 L RDW 16.6 H Plt Count 225 MPV 9.5 Absolute Neuts (auto) 6.40 Absolute Lymphs (auto) 2.70 Absolute Monos (auto) 0.70 Absolute Eos (auto) 0.60 H Absolute Basos (auto) 0.10 Neutrophils % 61.2 Neutrophils % (Manual) 48.0 Lymphocytes % 25.6 Lymphocytes % (Manual) 40.0 Monocytes % 6.9 Monocytes % (Manual) 6.0 Eosinophils % 5.4 H Basophils % 0.9 Band Neutrophils 2.0 Eosinophils 4.0 Metamyelocytes 1.0 Hypochromia 1+ Platelet Estimate Normal Poikilocytosis 1+ Anisocytosis 1+ Macrocytosis 1+ Sodium 145 Potassium 4.1 Chloride 112 H Carbon Dioxide 29 Anion Gap 8.1 L BUN 18 Creatinine 0.50 L D BUN/Creatinine Ratio 36.0 H Random Glucose 79 Serum Osmolality 289.5 Calcium 8.7 Total Bilirubin 0.3 AST 18 ALT 49 Alkaline Phosphatase 137 H Serum Total Protein 6.3 L Albumin 2.5 L Globulin 3.8 H Albumin/Globulin Ratio 0.7 L blood and sputum cultures have been performed. CT of the chest shows a small left pleural effusion. There is mild increased consolidation towards the base and posterior aspect of the left lung as well as some patchy infiltrates to the upper left lung. Departure - Departure Clinical Impression: Pneumonia, ventilator associated Disposition: Discharge to [facility] Condition: Fair Departure Forms: ED Discharge - Pt. Copy, Patient Portal Self Enrollment Instructions: Pneumonia-Adult Referrals: [facility] [Primary Care Provider] - 1-2 Days Home Medications: Ambulatory Orders Hydrocodone-Acetaminophen [Lortab 5-325 mg] 1 tab PO Q4H 01/03/15 Metoprolol Tartrate 12.5 mg PEG Q8H PRN 01/03/15 Ondansetron [Zofran Odt] 4 mg PO TID PRN 01/03/15 Aluminum/Magnesium/Simeth 200-200-20 mg/5Ml 30 ml PEG BID 01/26/15 Diazepam [Valium] 5 mg PO Q4H PRN 01/26/15 Ferrous Sulfate 5 ml PO DAILY 01/26/15 Levothyroxine Sodium [Synthroid] 25 mcg PO DAILY 01/26/15 Lorazepam 2 mg PO TID PRN 01/26/15 Magnesium Hydroxide [Milk Of Magnesia] 400 mg PO DAILY PRN 01/26/15 Miconazole Nitrate 2 % Topical 2 % TD BID 01/26/15 Sucralfate Suspension [Carafate Suspension] 1 gm PO QID 01/26/15 fentaNYL PATCH 50 MCG/HR [Duragesic Patch 50 MCG/HR] 50 mcg TD Q72H 01/26/15 Albuterol Sulfate Nebs [Proventil Nebs] 2.5 mg INH Q2H PRN 04/26/15 Ascorbic Acid [Vitamin C] 500 mg PO DAILY 04/26/15 Ferrous Sulfate 300 mg PO DAILY 04/26/15 Valproic Acid Syrup [Depakene Syrup] 5 ml PO TID 04/26/15 Atropine Sulfate (Ophthalmic) [Atropine Sulfate] 1 % SL Q4H PRN 08/04/16 Chlorhexidine Gluconate (Mouth [Chlorhexidine Gluconate] 0.12 % MT BID 08/04/16 Ipratropium/Albuterol [Duoneb] 3 ml INH Q6H 08/04/16 Multiple Vitamin [Multivitamins] 1 cap PO DAILY 08/04/16 Promethazine HCl 25 mg PO Q6H PRN 08/04/16 Additional Instructions: the patient is a 41-year-old -L[place]ian male brought into the emergency room secondary to concern for recurrent pneumonia. Clinically the patient is doing well. Vital signs are stable. He is not requiring an increase in his ventilator settings. White blood cell count is reassuring. Blood and sputum cultures have been obtained. CT scan of the chest does show some left lung consolidation but this is consistent with maturation of the pneumonia seen on the x-ray when he was sent over for sepsis last week. We will change the patient's Rocephin over to cefepime 1 g IV twice daily for 5 days. this should help cover for the possibility of Pseudomonas better. It also still covers the Escherichia coli that grew out of the urine and blood cultures from his sepsis. He will also receive azithromycin 500 mg IV daily for 5 days. he will be placed on Bactrim DS 1 tablet twice daily per PEG tube for 5 days. The patient should have aggressive pulmonary toilet performed. He is to be sent back to the emergency room for any acute worsening. He should see his primary care doctor at the facility tomorrow before the weekend. He does have a PICC line already for the antibiotics above. At this time there is nothing that a hospital can do for him that his long-term care facility cannot provide in his current condition. he has received his evening doses of antibiotics here today already.
[2016-12-31] MEDS ORDERED: ONDANSETRON ODT 8 MG TAB SL ONE (18:56)
[2016-12-31 19:04] VITALS: BP 115/87
== END 2016-12-31 19:03 ==
LOC: ER 13:17
DX: J95.851 Ventilator associated pneumonia (principal); I11.0 Hypertensive heart disease with heart failure; I50.9 Heart failure, unspecified; E07.9 Disorder of thyroid, unspecified; E11.9 Type 2 diabetes mellitus without complications; K21.9 Gastro-esophageal reflux disease without esophagitis; J44.9 Chronic obstructive pulmonary disease, unspecified; Z86.14 Personal history of Methicillin resistant Staphylococcus aureus infection; Z99.11 Dependence on respirator [ventilator] status; Z79.899 Other long term (current) drug therapy
CPT/HCPCS: 36415; 71010; 71250; 80053; 85025; 87040; 87070; 87077; 87186; 94002; 94640; J0456; J0692; J7050; J7620

== ENCOUNTER 2017-05-20 13:39 | Emergency (ER) | payer OTHER ==
[2017-05-20] MEDS ORDERED: METOPROLOL TARTRATE INJ 5 MG/5 ML VIAL IV ONE ×2 (13:40→13:42)
[2017-05-20] MEDS ORDERED: HYDROmorphone HCL INJ 2 MG/ML VIAL IV ONE (13:51)
[2017-05-20] MEDS ORDERED: ACETAMINOPHEN SUPPOSITORY 650 MG PR ONE (13:53)
[2017-05-20] MEDS ORDERED: LEVALBUTEROL NEBS 1.25 MG/3 ML VIAL NEB ONE (13:54)
--- NOTE | 2017-05-20 13:55 | ED.PDOC ---
History of Present Illness - General Chief Complaint: Respiratory Problem Time Seen by Provider: 05/20/17 13:51 Source: EMS notes reviewed, [facility] records Exam Limitations: clinical condition - History of Present Illness Initial Comments: the patient is a 41-year-old -[place] male that is a long-term resident of [facility] facility [facility]. The patient was sent up here secondary to respiratory distress. The patient has a history of either anoxic brain injury or traumatic brain injury I'm uncertain. He is a quadriplegic. He is uncommunicative but is able to display some distress. The patient was gasping for air and diaphoretic as well as severely tachycardic with sinus tachycardia ranging between 180 and 220. I have actually seen this patient on at least 5 occasions with this presentation. The patient has a history of getting an illness and having a reactive sinus tachycardia that pushes him into pulmonary edema. That appears to be what is going on today. Temperature was 100.7 upon arrival. Systolic blood pressure was in the 120s. Coarse breath sounds bilaterally and bloody hemoptysis in the ET tube. As has been proven to work in the past the patient received a dose of IV Lopressor which eventually slow his heart rate down to around 100 bpm. This did allow for hispulmonary edema to significantly improve. No IV Lasix were given to this patient. The patient additionally did receive a small dose of an IV opioid and IV benzodiazepine as he does take these on a routine basis and I can certainly not rule out any withdrawal as part of his distress. These measures didn't help the patient significantly clinicallywith a reduction in his obvious distress. He is oxygenating more easily. Lungs are clearing up. Heart rate is better controlled. However he is mildly hypotensive with systolic blood pressures ranging between 85 and 105. The patient was started on low-dose Levophed for this and after his lungs had cleared up he was started on some IV fluids for what is most likely urosepsis. the patient's sacral decubitus ulcer appears to be in better shape than Inapsine in his last few visits. Hobson catheter is in place. G-tube is in place and we actually did vent his G-tube as there was significant dilation of the stomach on the x-ray. I'm uncertain if the fever is due to infection or the sinus tachycardia. Likely both. the patient did bump his troponin and CK-MB are all here. This has been a recurrentfinding with these episodes of his sinus tachycardia. I see at least 5 cases of this. Secondary to pulmonary edema he has not been given anyblood thinners. Timing/Duration: unsure Severity: severe Improving Factors: nothing Worsening Factors: nothing Allergies/Adverse Reactions: Allergies NO KNOWN ALLERGY Allergy (Verified 05/28/16 04:34) Home Medications: Ambulatory Orders Hydrocodone-Acetaminophen [Lortab 5-325 mg] 1 tab PO Q4H 01/03/15 Metoprolol Tartrate 12.5 mg PEG Q8H PRN 01/03/15 Ondansetron [Zofran Odt] 4 mg PO TID PRN 01/03/15 Aluminum/Magnesium/Simeth 200-200-20 mg/5Ml 30 ml PEG BID 01/26/15 Diazepam [Valium] 5 mg PO Q4H PRN 01/26/15 Ferrous Sulfate 5 ml PO DAILY 01/26/15 Levothyroxine Sodium [Synthroid] 25 mcg PO DAILY 01/26/15 Lorazepam 2 mg PO TID PRN 01/26/15 Magnesium Hydroxide [Milk Of Magnesia] 400 mg PO DAILY PRN 01/26/15 Miconazole Nitrate 2 % Topical 2 % TD BID 01/26/15 Sucralfate Suspension [Carafate Suspension] 1 gm PO QID 01/26/15 fentaNYL PATCH 50 MCG/HR [Duragesic Patch 50 MCG/HR] 50 mcg TD Q72H 01/26/15 Albuterol Sulfate Nebs [Proventil Nebs] 2.5 mg INH Q2H PRN 04/26/15 Ascorbic Acid [Vitamin C] 500 mg PO DAILY 04/26/15 Ferrous Sulfate 300 mg PO DAILY 04/26/15 Valproic Acid Syrup [Depakene Syrup] 5 ml PO TID 04/26/15 Atropine Sulfate (Ophthalmic) [Atropine Sulfate] 1 % SL Q4H PRN 08/04/16 Chlorhexidine Gluconate (Mouth [Chlorhexidine Gluconate] 0.12 % MT BID 08/04/16 Ipratropium/Albuterol [Duoneb] 3 ml INH Q6H 08/04/16 Multiple Vitamin [Multivitamins] 1 cap PO DAILY 08/04/16 Promethazine HCl 25 mg PO Q6H PRN 08/04/16 Review of Systems - Review of Systems Unable to Obtain Due To: condition Past Medical History (General) - Patient Medical History Hx Seizures: Yes Hx Stroke: No Hx Dementia: No Hx Asthma: No Hx of COPD: Yes Hx Cardiac Disorders: Yes Hx Congestive Heart Failure: Yes Hx Pacemaker: No Hx Hypertension: Yes Hx Thyroid Disease: Yes Hx Diabetes: Yes Hx Gastroesophageal Reflux: Yes Hx Renal Disease: No Hx Cancer: No Hx of HIV: No Hx Hepatitis C: No Hx MRSA: Yes MRSA Source:: Wound - Vaccination History Hx Tetanus, Diphtheria Vaccination: No Hx Influenza Vaccination: No Hx Pneumococcal Vaccination: No - Social History Hx Tobacco Use: No Hx Chewing Tobacco Use: No Hx Alcohol Use: No Hx Substance Use: No Hx Substance Use Treatment: No Hx Depression: No Hx Physical Abuse: - unable to abtain Hx Emotional Abuse: No Hx Suspected Abuse: No - Female History Patient : No Family Medical History - Family History Mother Family History: Unknown Living Status: Still Living Physical Exam - Physical Exam General Appearance: Alert - Eyes are open. The patient is in obvious distress but unable to communicate., Obvious distress Eye Exam: bilateral normal Ears, Nose, Throat: normal ENT inspection Neck: other - the patient is unable to look around with purpose howeverhe does appear to be able to move his neck inboth directions. No obviousnew injuries. Tracheostomy is in place. Size 7 lumen.. Respiratory: respiratory distress, decreased breath sounds, accessory muscle use , rales, rhonchi, wheezing Cardiovascular/Chest: no edema, tachycardia Peripheral Pulses: radial,right: 2+, radial,left: 2+, dorsalis pedis,left: 1+ Gastrointestinal/Abdominal: soft - g-tube is in place. Abdomen is moderately distended. No evidence of discomfort palpation. Rectal Exam: deferred, other - sacral decubitus with significant chronic scarring but wound has significantly improved since his last visit. Extremity: no pedal edema - the patient is a quadriplegic. He does have some spasticity to his limbs. Significant atrophy is present. Neurologic: alert, other - unable to comply with neurosensory testing. Skin Exam: normal color - with the exception of scarring from his previous ulcers Comments: Vital Signs - 8 hr 05/20/17 05/20/17 05/20/17 13:40 13:41 13:52 Temperature 100.7 F H Pulse Rate 144 H Pulse Rate [ 167 H right brachial] Respiratory 32 H 26 H Rate Respiratory 23 Rate [Volume Control Data] Blood Pressure 162/120 [Right Arm] O2 Sat by Pulse 88 L 93 L Oximetry 05/20/17 05/20/17 05/20/17 13:57 14:10 14:35 Temperature Pulse Rate Pulse Rate [ 137 H 157 H 138 H right brachial] Respiratory 24 24 20 Rate Respiratory Rate [Volume Control Data] Blood Pressure 125/76 108/56 90/44 [Right Arm] O2 Sat by Pulse 95 96 94 L Oximetry 05/20/17 15:58 Temperature Pulse Rate Pulse Rate [ right brachial] Respiratory Rate Respiratory 24 Rate [Volume Control Data] Blood Pressure [Right Arm] O2 Sat by Pulse Oximetry Progress - Progress Progress: 05/20/17 16:17 the patient is a 41-year-old -[place] male presenting to the emergency room from his long-term care facility secondary to respiratory distress. The patient was in kisha pulmonary edema likely due to his reactive severe sinus tachycardia as we have seen several times in the past. The patient has bumped his enzymes as he has done multiple times in the past due to the same process. We have been able to slow him down to a rate of around 100-110 bpm with a dose of IV Lopressor. Respiratory distress has significantly improved and lung barone are clearing. The patient is mildly hypotensive and I do believe he has some sepsis most likely from a urinary tract infection. A repeat x-ray in the near future will be warranted to see if there is any residual infiltrates after the pulmonary edema has cleared. 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 The patient is receiving a dose of meropenem currently. Lactic acid level was 3. He has received a liter of IV fluids. He is also on low-dose Levophed for very mild hypotension. This will likely be able to be discontinued in the very near future as he is rehydrated. He is receiving a dose of Solu-Medrol for the sepsis. Cultures are being done. cardiac enzymes will need repeating and I do expect them to rise a little before they fall. Again we have at least 5 documented episodes of a troponin leak with these tachycardic episodes in the past. No blood thinners are being given secondary to the pulmonary edema. the patient clinically is much improved at this time in comparison to his admission status. 05/20/17 16:23 critical care time 45 minuteson not otherwise billable procedures - Results/Orders Results/Orders: chest x-ray shows increased infiltrates to the right lung field. No pneumothorax. Telemetry monitoring shows sinus tachycardia. Laboratory Tests 05/20/17 05/20/17 05/20/17 14:25 14:25 14:25 WBC 17.5 H RBC 4.39 L Hgb 11.9 L Hct 37.4 L MCV 85.2 MCH 27.1 MCHC 31.8 L RDW 16.0 H Plt Count 257 MPV 9.7 Absolute Neuts (auto) 16.10 H Absolute Lymphs (auto) 1.00 Absolute Monos (auto) 0.30 Absolute Eos (auto) 0.10 Absolute Basos (auto) 0.10 Neutrophils % 91.9 H Lymphocytes % 5.7 L Monocytes % 1.7 L Eosinophils % 0.3 L Basophils % 0.4 PT 12.0 INR 1.060 PTT (SP) 39.4 H Sodium 139 Potassium 4.3 Chloride 104 Carbon Dioxide 23 Anion Gap 16.3 BUN 32 H Creatinine 0.98 BUN/Creatinine Ratio 32.7 H Random Glucose 140 H Serum Osmolality 286.7 Lactic Acid Calcium 9.3 Magnesium 2.4 Total Bilirubin 0.2 AST 42 ALT 47 Alkaline Phosphatase 151 H Creatine Kinase 78 CK-MB (CK-2) 4.8 H* CK-MB (CK-2) % Not Reportable Troponin I 0.14 H* B-Natriuretic Peptide 1250.0 H* Serum Total Protein 8.0 Albumin 3.1 L Globulin 4.9 H Albumin/Globulin Ratio 0.6 L Urine Color Urine Appearance Urine pH Ur Specific [place] Urine Protein Urine Glucose (UA) Urine Ketones Urine Blood Urine Nitrite Urine Bilirubin Urine Urobilinogen Ur Leukocyte Esterase Urine RBC Urine WBC Ur Epithelial Cells Urine Bacteria 05/20/17 05/20/17 14:25 14:37 WBC RBC Hgb Hct MCV MCH MCHC RDW Plt Count MPV Absolute Neuts (auto) Absolute Lymphs (auto) Absolute Monos (auto) Absolute Eos (auto) Absolute Basos (auto) Neutrophils % Lymphocytes % Monocytes % Eosinophils % Basophils % PT INR PTT (SP) Sodium Potassium Chloride Carbon Dioxide Anion Gap BUN Creatinine BUN/Creatinine Ratio Random Glucose Serum Osmolality Lactic Acid 3.0 H* Calcium Magnesium Total Bilirubin AST ALT Alkaline Phosphatase Creatine Kinase CK-MB (CK-2) CK-MB (CK-2) % Troponin I B-Natriuretic Peptide Serum Total Protein Albumin Globulin Albumin/Globulin Ratio Urine Color Yellow Urine Appearance Cloudy Urine pH 7.0 Ur Specific [place] 1.015 Urine Protein 100 H Urine Glucose (UA) Negative Urine Ketones Negative Urine Blood Moderate H Urine Nitrite Negative Urine Bilirubin Negative Urine Urobilinogen 0.2 Ur Leukocyte Esterase Large H Urine RBC Obscured by wbc's H Urine WBC Tntc H Ur Epithelial Cells 0 Urine Bacteria 3+ H Departure - Departure Clinical Impression: Sepsis Qualifiers: Sepsis type: sepsis due to unspecified organism Qualified Code(s): A41.9 - Sepsis, unspecified organism Catheter cystitis Qualifiers: Encounter type: initial encounter Qualified Code(s): T83.511A - Infection and inflammatory reaction due to indwelling urethral catheter, initial encounter; N30.90 - Cystitis, unspecified without hematuria Pulmonary edema Qualifiers: Chronicity: acute Qualified Code(s): J81.0 - Acute pulmonary edema Disposition: Transfer to Hospital Condition: Poor Referrals: [facility] [Primary Care Provider] - 1-2 Weeks Home Medications: Ambulatory Orders Hydrocodone-Acetaminophen [Lortab 5-325 mg] 1 tab PO Q4H 01/03/15 Metoprolol Tartrate 12.5 mg PEG Q8H PRN 01/03/15 Ondansetron [Zofran Odt] 4 mg PO TID PRN 01/03/15 Aluminum/Magnesium/Simeth 200-200-20 mg/5Ml 30 ml PEG BID 01/26/15 Diazepam [Valium] 5 mg PO Q4H PRN 01/26/15 Ferrous Sulfate 5 ml PO DAILY 01/26/15 Levothyroxine Sodium [Synthroid] 25 mcg PO DAILY 01/26/15 Lorazepam 2 mg PO TID PRN 01/26/15 Magnesium Hydroxide [Milk Of Magnesia] 400 mg PO DAILY PRN 01/26/15 Miconazole Nitrate 2 % Topical 2 % TD BID 01/26/15 Sucralfate Suspension [Carafate Suspension] 1 gm PO QID 01/26/15 fentaNYL PATCH 50 MCG/HR [Duragesic Patch 50 MCG/HR] 50 mcg TD Q72H 01/26/15 Albuterol Sulfate Nebs [Proventil Nebs] 2.5 mg INH Q2H PRN 04/26/15 Ascorbic Acid [Vitamin C] 500 mg PO DAILY 04/26/15 Ferrous Sulfate 300 mg PO DAILY 04/26/15 Valproic Acid Syrup [Depakene Syrup] 5 ml PO TID 04/26/15 Atropine Sulfate (Ophthalmic) [Atropine Sulfate] 1 % SL Q4H PRN 08/04/16 Chlorhexidine Gluconate (Mouth [Chlorhexidine Gluconate] 0.12 % MT BID 08/04/16 Ipratropium/Albuterol [Duoneb] 3 ml INH Q6H 08/04/16 Multiple Vitamin [Multivitamins] 1 cap PO DAILY 08/04/16 Promethazine HCl 25 mg PO Q6H PRN 08/04/16 Transfer to Outside Facility - Transfer Information Accepting Provider:: dr rosales Accepting Facility: [facility] Reason for Transfer: required specialist not available
--- NOTE | 2017-05-20 14:00 | RAD ---
EXAM DESCRIPTION: Chest,1 View CLINICAL HISTORY: SOB COMPARISON: December 31, 2016 IMPRESSION: Single AP portable upright view of the chest shows enlargement of the cardiac silhouette without pulmonary vascular congestion. Tracheostomy tube is again seen in place with tip at the level of the aortic knob. There is improved aeration of the left lung and retrocardiac region compared to previous exam. There are new diffuse interstitial alveolar infiltrates throughout the right lung are seen that could represent pneumonia or pneumonitis. Continued follow-up to resolution is recommended. Probable PEG tube with air-filled distended stomach is seen. Aortic stent graft is partly visualized. Electronically signed by: Tonny Serrano MD 05/20/2017 1:58 PM CDT
[2017-05-20] MEDS ORDERED: SODIUM CHLORIDE 0.9% 1000ML 500 ML IVS ONE (14:35)
[2017-05-20] MEDS ORDERED: MEROPENEM 1 GM in SODIUM CHL 0.9% 50ML MIN-BAG+ 50 ML IVPB ONE (14:45)
[2017-05-20] MEDS ORDERED: diazePAM 5 MG TAB GT ONE (14:46)
[2017-05-20] MEDS ORDERED: SODIUM CHL 0.9% 50ML MIN-BAG+ 50 ML IVPB ONE (14:53)
[2017-05-20] MEDS ORDERED: MEROPENEM 1 GM VIAL IVPB ONE (14:54)
[2017-05-20] MEDS ORDERED: SODIUM CHLORIDE 0.9% 1000ML 1,000 ML IVS ONE (15:37)
[2017-05-20] MEDS ORDERED: levoFLOXacin 250MG IV 0 ML IVPB ONE (15:47)
[2017-05-20] MEDS ORDERED: DEXTROSE 5% 250ML 250 ML ONE (15:48)
[2017-05-20] MEDS ORDERED: NOREPINEPHRINE BITARTRATE 4 MG/4 ML VIAL IVPB ONE (15:48)
[2017-05-20] MEDS ORDERED: methylPREDNISolone SODIUM SUC 40 MG/ML VIAL IV ONE (16:24)
[2017-05-20] MEDS ORDERED: NOREPINEPHRINE BITARTRATE 4 MG in DEXTROSE 5% 250ML 250 ML IVPB SCH (17:00)
[2017-05-20 17:34] VITALS: BP 101/46; TEMP 95; O2SAT 100
== END 2017-05-20 17:42 | disposition short-term general hospital (02) ==
LOC: ER 13:39
DX: T83.518A Infection and inflammatory reaction due to other urinary catheter, initial encounter (principal); A41.9 Sepsis, unspecified organism; N30.90 Cystitis, unspecified without hematuria; J81.0 Acute pulmonary edema; G82.50 Quadriplegia, unspecified; R00.0 Tachycardia, unspecified; Z93.1 Gastrostomy status; I11.0 Hypertensive heart disease with heart failure; I50.9 Heart failure, unspecified; E11.9 Type 2 diabetes mellitus without complications; K21.9 Gastro-esophageal reflux disease without esophagitis; E03.9 Hypothyroidism, unspecified; Z93.0 Tracheostomy status
CPT/HCPCS: 36415; 71010; 80053; 81001; 82550; 82553; 83605; 83735; 83880; 84484; 85025; 85610; 85730; 87040; 87086; 93005; 94002; 94640; J1030; J1170; J2060; J2185; J7030; J7050; J7060; J7614

== ENCOUNTER 2017-05-27 08:52 | Emergency (ER) | payer OTHER ==
[2017-05-27 09:05] VITALS: TEMP 96.2; O2SAT 100
--- NOTE | 2017-05-27 09:25 | ED.PDOC ---
History of Present Illness - General Source: patient Exam Limitations: clinical condition - History of Present Illness Initial Comments: the patient is a 41-year-old male presenting to the emergency room secondary laboratory abnormalities drawn last night at his long-term care facility. Apparently laboratory work was sent out yesterday evening for follow- up from a hospital stay for sepsis from a urinary tract infection as well as pulmonary edema related to sinus tachycardia with poor perfusion. Laboratory work performed 2 days prior and had been close to normal for the patient. lab work was repeated last night with significant changes in the white blood cell count, hemoglobin and hematocrit, electrolytes and kidney function. The patient has been on IV vancomycin and cefepime as well as Flagyl per G-tube for his infection. His urine actually looks clear today. He does not appear to be in any distress. The only unusual clinical finding that I see is that his heart rate is significantly lower than what it normally is. His heart rate is ranging from 48-65. almost every other time I've seen him in the past his heart rate has been from 90-220. It is given that during those times however he was obviously clinically ill. Today he actually looks pretty good for him. He is a long-term quadriplegic and does not communicate. He has a chronic decubitus ulcer as well as previous amputation sites. he does appear to be oxygenating without difficulty on his baseline ventilator settings. He is not giving any clinical indication of distress. Timing/Duration: unsure Severity: moderate Improving Factors: nothing Worsening Factors: nothing <Jasmeet Granados - Last Filed: 05/27/17 09:45> <Joseph Jane - Last Filed: 05/27/17 11:28> - General Chief Complaint: General Stated Complaint: abnormal lab work Time Seen by Provider: 05/27/17 08:55 - History of Present Illness Allergies/Adverse Reactions: Allergies NO KNOWN ALLERGY Allergy (Verified 05/28/16 04:34) Home Medications: Ambulatory Orders Hydrocodone-Acetaminophen [Lortab 5-325 mg] 1 tab PEG Q4H PRN 01/03/15 Metoprolol Tartrate 12.5 mg PEG Q8H 01/03/15 Ondansetron [Zofran Odt] 4 mg PEG TID PRN 01/03/15 Aluminum/Magnesium/Simeth 200-200-20 mg/5Ml 30 ml PEG BID 01/26/15 Diazepam [Valium] 5 mg PEG Q4H PRN 01/26/15 Levothyroxine Sodium [Synthroid] 25 mcg PEG DAILY 01/26/15 Lorazepam 2 mg PEG TID PRN 01/26/15 Magnesium Hydroxide [Milk Of Magnesia] 400 mg PEG BEDTIME 01/26/15 Sucralfate Suspension [Carafate Suspension] 1 gm PEG QID 01/26/15 fentaNYL PATCH 50 MCG/HR [Duragesic Patch 50 MCG/HR] 50 mcg TD Q72H 01/26/15 Albuterol Sulfate Nebs [Proventil Nebs] 2.5 mg INH Q2H PRN 04/26/15 Ascorbic Acid [Vitamin C] 500 mg PEG DAILY 04/26/15 Ferrous Sulfate 300 mg PEG DAILY 04/26/15 Valproic Acid Syrup [Depakene Syrup] 5 ml PEG TID 04/26/15 Atropine Sulfate (Ophthalmic) [Atropine Sulfate] 1 % SL Q4H PRN 08/04/16 Chlorhexidine Gluconate (Mouth [Chlorhexidine Gluconate] 0.12 % MT BID 08/04/16 Ipratropium/Albuterol [Duoneb] 3 ml INH Q6H 08/04/16 Multiple Vitamin [Multivitamins] 1 cap PEG DAILY 08/04/16 Promethazine HCl 25 mg PEG Q6H PRN 08/04/16 Cyanocobalamin [Vitamin B-12] 1,000 mcg PEG DAILY 05/27/17 Folic Acid 1 mg PEG DAILY 05/27/17 Metoclopramide HCl [Reglan] 10 mg PEG BID 05/27/17 Omeprazole [PriLOSEC Cap] 20 mg PEG DAILY 05/27/17 Review of Systems - Review of Systems Unable to Obtain Due To: clinical condition <Jasmeet Granados - Last Filed: 05/27/17 09:45> Past Medical History (General) - Patient Medical History Hx Seizures: Yes Hx Stroke: No Hx Dementia: No Hx Asthma: No Hx of COPD: Yes Hx Cardiac Disorders: Yes Hx Congestive Heart Failure: Yes Hx Pacemaker: No Hx Hypertension: Yes Hx Thyroid Disease: Yes Hx Diabetes: Yes Hx Gastroesophageal Reflux: Yes Hx Renal Disease: No Hx Cancer: No Hx of HIV: No Hx Hepatitis C: No Hx MRSA: Yes MRSA Source:: Wound - Vaccination History Hx Tetanus, Diphtheria Vaccination: No Hx Influenza Vaccination: - UNKNOWN Hx Pneumococcal Vaccination: - UNKNOWN - Social History Hx Tobacco Use: No Hx Chewing Tobacco Use: No Hx Alcohol Use: No Hx Substance Use: No Hx Substance Use Treatment: No Hx Depression: No Hx Physical Abuse: - unable to abtain Hx Emotional Abuse: No Hx Suspected Abuse: No - Activities of Daily Living Halfway/Assisted Living (if applicable):: [facility] - Female History Patient : No <Jasmeet Granados - Last Filed: 05/27/17 09:45> Family Medical History - Family History Mother Family History: Unknown Living Status: Still Living <Jasmeet Granados - Last Filed: 05/27/17 09:45> Physical Exam - Physical Exam General Appearance: No apparent distress, Lethargic Eye Exam: bilateral other - the patient does not track with his eyes but usually does not. Ears, Nose, Throat: normal ENT inspection - . Neck: non-tender - no evidence of discomfort with palpation. Tracheostomy is in place., supple Respiratory: normal breath sounds, no respiratory distress, no accessory muscle use Cardiovascular/Chest: normal peripheral pulses, no edema, bradycardia - sinus per telemetry Peripheral Pulses: radial,right: 2+, radial,left: 2+ Gastrointestinal/Abdominal: non tender - no evidence of discomfort with palpation., soft, distended - mildly distended and tympanic Rectal Exam: deferred, other - I have not yet had a chance this visit to evaluate his sacrum. As of one week ago the skin and scar tissue were intact over the previous ulcer site. Back Exam: no vertebral tenderness - no evidence of discomfort to palpation Extremity: other - quadriplegic. Long-term Hairloss lower extremity. Significant muscle wasting which is chronic. Neurologic: other - see history of present illness Skin Exam: normal color - o diaphoresis this time. Comments: Vital Signs - 24 hr 05/27/17 09:01 Temperature 96.2 F L Pulse Rate [ 48 L Right Brachial] Respiratory 18 Rate Blood Pressure 126/50 [Right Arm] O2 Sat by Pulse 100 Oximetry <Jasmeet Granados - Last Filed: 05/27/17 09:45> Progress - Progress Progress: 05/27/17 09:28 the patient is a 41-year-old -British male presenting secondary to a multitude of laboratory abnormalities that are seemingly developed over a 2 day period. Clinically with the exception of some mild sinus bradycardia the patient appears to be at his baseline. Laboratory work is currently being repeated. vancomycin and Depakote levels as well as a lactic acid are also being sent. the patient will be turned over to Dr. Jane completion of the workup. - Results/Orders Results/Orders: abg: ph 7.52, paco2 32, pao2 189, bicarb 26. <Jasmeet Granados L - Last Filed: 05/27/17 09:45> - Progress Progress: I have taken over the case and now waiting for lab results. The valproic acid was sub-therapeutic ar 38. I have ordered 500 mg of depakote via GT. The patient's lab otherwise is WNL. He will be discharged back to [facility]. 05/27/17 11:02 VALPROIC ACID (DEPAKENE) Stat Laboratory Results - last 24 hr 05/27/17 05/27/17 05/27/17 09:08 09:35 09:35 WBC 7.9 RBC 3.58 L Hgb 9.9 L Hct 30.4 L MCV 84.8 MCH 27.6 MCHC 32.7 L RDW 15.4 H Plt Count 176 MPV 9.8 Absolute Neuts (auto) 4.60 Absolute Lymphs (auto) 2.30 Absolute Monos (auto) 0.60 Absolute Eos (auto) 0.40 Absolute Basos (auto) 0.00 Neutrophils % 58.3 Lymphocytes % 29.3 Monocytes % 7.1 Eosinophils % 4.8 Basophils % 0.5 pCO2 32 L pO2 189 H* HCO3 25.7 ABG pH 7.520 H ABG O2 Saturation 0.0 L* ABG Base Excess 0.0 ABG Deoxyhemoglobin 0.0 Oxyhemoglobin % 0.0 L Carboxyhemoglobin % 0.0 L Methemoglobin % Sat 0.0 Calc Total Hemoglobin 0.0 L Sodium 140 Potassium 3.9 Chloride 104 Carbon Dioxide 29 Anion Gap 10.9 L BUN 17 Creatinine 0.52 L BUN/Creatinine Ratio 32.7 H Random Glucose 82 Serum Osmolality 280.0 Lactic Acid Calcium 9.3 Total Bilirubin 0.4 AST 25 ALT 38 Alkaline Phosphatase 99 Serum Total Protein 6.9 Albumin 3.1 L Globulin 3.8 H Albumin/Globulin Ratio 0.8 L Vancomycin Trough Valproic Acid 05/27/17 05/27/17 05/27/17 09:35 09:35 09:35 WBC RBC Hgb Hct MCV MCH MCHC RDW Plt Count MPV Absolute Neuts (auto) Absolute Lymphs (auto) Absolute Monos (auto) Absolute Eos (auto) Absolute Basos (auto) Neutrophils % Lymphocytes % Monocytes % Eosinophils % Basophils % pCO2 pO2 HCO3 ABG pH ABG O2 Saturation ABG Base Excess ABG Deoxyhemoglobin Oxyhemoglobin % Carboxyhemoglobin % Methemoglobin % Sat Calc Total Hemoglobin Sodium Potassium Chloride Carbon Dioxide Anion Gap BUN Creatinine BUN/Creatinine Ratio Random Glucose Serum Osmolality Lactic Acid 1.2 Calcium Total Bilirubin AST ALT Alkaline Phosphatase Serum Total Protein Albumin Globulin Albumin/Globulin Ratio Vancomycin Trough < 2.0 L Valproic Acid 34.2 L 05/27/17 11:12 <Joseph Jane - Last Filed: 05/27/17 11:28> Departure <Jasmeet Granados - Last Filed: 05/27/17 09:45> <Joseph Jane - Last Filed: 05/27/17 11:28> - Departure Clinical Impression: Seizure disorder Disposition: Discharge to SNF Condition: Fair Departure Forms: ED Discharge - Pt. Copy, Patient Portal Self Enrollment Referrals: ALPHONSE LA [Primary Care Provider] - 1-2 Weeks Home Medications: Ambulatory Orders Hydrocodone-Acetaminophen [Lortab 5-325 mg] 1 tab PEG Q4H PRN 01/03/15 Metoprolol Tartrate 12.5 mg PEG Q8H 01/03/15 Ondansetron [Zofran Odt] 4 mg PEG TID PRN 01/03/15 Aluminum/Magnesium/Simeth 200-200-20 mg/5Ml 30 ml PEG BID 01/26/15 Diazepam [Valium] 5 mg PEG Q4H PRN 01/26/15 Levothyroxine Sodium [Synthroid] 25 mcg PEG DAILY 01/26/15 Lorazepam 2 mg PEG TID PRN 01/26/15 Magnesium Hydroxide [Milk Of Magnesia] 400 mg PEG BEDTIME 01/26/15 Sucralfate Suspension [Carafate Suspension] 1 gm PEG QID 01/26/15 fentaNYL PATCH 50 MCG/HR [Duragesic Patch 50 MCG/HR] 50 mcg TD Q72H 05/30/15 Albuterol Sulfate Nebs [Proventil Nebs] 2.5 mg INH Q2H PRN 04/26/15 Ascorbic Acid [Vitamin C] 500 mg PEG DAILY 04/26/15 Ferrous Sulfate 300 mg PEG DAILY 04/26/15 Valproic Acid Syrup [Depakene Syrup] 5 ml PEG TID 04/26/15 Atropine Sulfate (Ophthalmic) [Atropine Sulfate] 1 % SL Q4H PRN 08/04/16 Chlorhexidine Gluconate (Mouth [Chlorhexidine Gluconate] 0.12 % MT BID 08/04/16 Ipratropium/Albuterol [Duoneb] 3 ml INH Q6H 08/04/16 Multiple Vitamin [Multivitamins] 1 cap PEG DAILY 08/04/16 Promethazine HCl 25 mg PEG Q6H PRN 08/04/16 Cyanocobalamin [Vitamin B-12] 1,000 mcg PEG DAILY 05/27/17 Folic Acid 1 mg PEG DAILY 05/27/17 Metoclopramide HCl [Reglan] 10 mg PEG BID 05/27/17 Omeprazole [PriLOSEC Cap] 20 mg PEG DAILY 05/27/17
[2017-05-27] MEDS: VALPROIC ACID 250MG/5ML 60 ML BTTL GT ONE (11:36)
[2017-05-27 12:52] VITALS: BP 125/54
== END 2017-05-27 12:25 ==
LOC: ER 08:52
DX: R79.89 Other specified abnormal findings of blood chemistry (principal); G40.909 Epilepsy, unspecified, not intractable, without status epilepticus; G82.50 Quadriplegia, unspecified; Z99.11 Dependence on respirator [ventilator] status; Z93.1 Gastrostomy status; I11.0 Hypertensive heart disease with heart failure; I10 Essential (primary) hypertension; E07.9 Disorder of thyroid, unspecified; E11.9 Type 2 diabetes mellitus without complications; K21.9 Gastro-esophageal reflux disease without esophagitis; J44.9 Chronic obstructive pulmonary disease, unspecified; L89.90 Pressure ulcer of unspecified site, unspecified stage

== ENCOUNTER 2017-05-28 14:05 | Emergency (ER) | payer OTHER ==
[2017-05-28 14:47] VITALS: TEMP 93.8; O2SAT 57
--- NOTE | 2017-05-28 14:57 | RAD ---
EXAM DESCRIPTION: Chest,1 View CLINICAL HISTORY: post CPR COMPARISON: None available FINDINGS: A tracheostomy tube remains in place. The heart is enlarged but stable. Interstitial prominence in the right lung is significantly improved from one week prior. Poor visualization of the left hemidiaphragm may be related to superimposed mediastinal structures versus left basilar consolidation and/or small left-sided effusion. The right costophrenic angle is excluded, but no right-sided effusion is seen. The lung volumes are within normal limits. No displaced rib fracture or pneumothorax is seen. IMPRESSION: No evidence of rib fracture or other CPR related complication. Stable cardiomegaly. Interval improvement in appearance of the right lung as detailed above. Poor visualization of the left hemidiaphragm which may be related to superimposed mediastinal structures, left-sided effusion and/or left basilar consolidation. Electronically signed by: Brandin Love MD 05/28/2017 2:56 PM CDT
[2017-05-28] MEDS ORDERED: SODIUM CHLORIDE 0.9% 1000ML 1,000 ML IVS ONE (16:00)
[2017-05-28] MEDS ORDERED: SODIUM BICARBONATE SYRINGE 50 MEQ/50 ML SYG IV ONE (16:00)
[2017-05-28] MEDS ORDERED: AMIODARONE HCL 150 MG/3 ML VIAL IVPB ONE (16:00)
[2017-05-28] MEDS ORDERED: EPINEPHrine INJ 0.1 MG/ML 10 ML SYG ONE (16:00)
[2017-05-28] MEDS ORDERED: CALCIUM CHLORIDE INJ 100 MG/ML SYG IV ONE (16:00)
[2017-05-28] MEDS ORDERED: ASPIRIN (ENTERIC COATED) 325 MG TAB PO ONE (20:32)
--- NOTE | 2017-05-29 05:15 | ED.PDOC ---
History of Present Illness - General Chief Complaint: Cardiac Respiratory Arrest Stated Complaint: CPR Time Seen by Provider: 05/28/17 14:05 Source: EMS, correction records Exam Limitations: clinical condition, physical impairment - History of Present Illness Initial Comments: Patient is a chronically intubated patient at [facility]. [employer] it was noticed that he was unresponsive and in cardiac arrest. EMS arrived and the patient received epinephrine and several shocks before arrival- see nursing notes. Upon arrival, patient was in ventricular fibrillation. CPR was in progress. Resuscitation was continued using ACLS protocol for over 80 minutes. Patient went into PEA shortly after arrival. Pulses were later palpated and patient was in ventricular tachycardia. Shock was administered and patient was back into ventricular fibrillation. CPR resumed and patient went back into PEA- see nursing notes for particular medication administration times and shock times. Patient was given several rounds of epinephrine and amiodarone. Bicarb one amp x one. Calcium chloride 1 gram IV x one was given shortly after return of pulses. Patient remained in PEA for the remainder of the resuscitation attempt. Neurological signs were checked. The patient had no corneal reflex, pupils were fixed and dilated, Doll's eye reflex absent, no withdrawal to pain, no heart sounds, and not spontaneous attempt at respiration. Patient was pronounced at 13:10. Timing/Duration: 1-3 hours Severity: severe Improving Factors: nothing Allergies/Adverse Reactions: Allergies NO KNOWN ALLERGY Allergy (Verified 05/28/16 04:34) Home Medications: Ambulatory Orders Hydrocodone-Acetaminophen [Lortab 5-325 mg] 1 tab PEG Q4H PRN 01/03/15 Metoprolol Tartrate 12.5 mg PEG Q8H 01/03/15 Ondansetron [Zofran Odt] 4 mg PEG TID PRN 01/03/15 Aluminum/Magnesium/Simeth 200-200-20 mg/5Ml 30 ml PEG BID 01/26/15 Diazepam [Valium] 5 mg PEG Q4H PRN 01/26/15 Levothyroxine Sodium [Synthroid] 25 mcg PEG DAILY 01/26/15 Lorazepam 2 mg PEG TID PRN 01/26/15 Magnesium Hydroxide [Milk Of Magnesia] 400 mg PEG BEDTIME 01/26/15 Sucralfate Suspension [Carafate Suspension] 1 gm PEG QID 01/26/15 fentaNYL PATCH 50 MCG/HR [Duragesic Patch 50 MCG/HR] 50 mcg TD Q72H 01/26/15 Albuterol Sulfate Nebs [Proventil Nebs] 2.5 mg INH Q2H PRN 04/26/15 Ascorbic Acid [Vitamin C] 500 mg PEG DAILY 04/26/15 Ferrous Sulfate 300 mg PEG DAILY 04/26/15 Valproic Acid Syrup [Depakene Syrup] 5 ml PEG TID 04/26/15 Atropine Sulfate (Ophthalmic) [Atropine Sulfate] 1 % SL Q4H PRN 08/04/16 Chlorhexidine Gluconate (Mouth [Chlorhexidine Gluconate] 0.12 % MT BID 08/04/16 Ipratropium/Albuterol [Duoneb] 3 ml INH Q6H 08/04/16 Multiple Vitamin [Multivitamins] 1 cap PEG DAILY 08/04/16 Promethazine HCl 25 mg PEG Q6H PRN 08/04/16 Cyanocobalamin [Vitamin B-12] 1,000 mcg PEG DAILY 05/27/17 Folic Acid 1 mg PEG DAILY 05/27/17 Metoclopramide HCl [Reglan] 10 mg PEG BID 05/27/17 Omeprazole [PriLOSEC Cap] 20 mg PEG DAILY 05/27/17 Review of Systems - Review of Systems Unable to Obtain Due To: condition, intubated, clinical condition Past Medical History (General) - Patient Medical History Hx Seizures: Yes Hx Stroke: No Hx Dementia: No Hx Asthma: No Hx of COPD: Yes Hx Cardiac Disorders: Yes Hx Congestive Heart Failure: Yes Hx Pacemaker: No Hx Hypertension: Yes Hx Thyroid Disease: Yes Hx Diabetes: Yes Hx Gastroesophageal Reflux: Yes Hx Renal Disease: No Hx Cancer: No Hx of HIV: No Hx Hepatitis C: No Hx MRSA: Yes MRSA Source:: Wound - Vaccination History Hx Tetanus, Diphtheria Vaccination: No Hx Influenza Vaccination: - UNKNOWN Hx Pneumococcal Vaccination: - UNKNOWN - Social History Hx Tobacco Use: No Hx Chewing Tobacco Use: No Hx Alcohol Use: No Hx Substance Use: No Hx Substance Use Treatment: No Hx Depression: No Hx Physical Abuse: - unable to abtain Hx Emotional Abuse: No Hx Suspected Abuse: No - Activities of Daily Living Alf/Assisted Living (if applicable):: [facility] - Female History Patient : No Family Medical History - Family History Mother Family History: Unknown Living Status: Still Living Physical Exam - Physical Exam General Appearance: Other - unresponsive Eye Exam: bilateral other - fixed and dilated Respiratory: lungs clear, other - no spontanous respirations, however, patient is chronically intubated Cardiovascular/Chest: other - no heart sounds Peripheral Pulses: radial,right: 0, radial,left: 0, femoral,right: 0, femoral, left: 0, popliteal,right: 0, popliteal,left: 0, dorsalis pedis,right: 0, dorsalis pedis,left: 0, posterior tibialis,right: 0, posterior tibialis,left: 0 Neurologic: other - GCS 3 DTR: 0: Biceps, left, Biceps, right, Triceps, left, Triceps, right, Brachioradialis, left, Brachioradialis, right, Achilles, left, Achilles, right, Patellar, left, Patellar, right, Babinski, left, Babinski, right Skin Exam: mottled Progress - Progress Progress: 05/29/17 05:17 see HPI and nursing notes Departure - Departure Clinical Impression: Cardiac arrest Disposition: Condition: Serious Departure Forms: ED Discharge - Pt. Copy, Patient Portal Self Enrollment Referrals: ALPHONSE LA [Primary Care Provider] - 1-2 Weeks Home Medications: Ambulatory Orders Hydrocodone-Acetaminophen [Lortab 5-325 mg] 1 tab PEG Q4H PRN 01/03/15 Metoprolol Tartrate 12.5 mg PEG Q8H 01/03/15 Ondansetron [Zofran Odt] 4 mg PEG TID PRN 01/03/15 Aluminum/Magnesium/Simeth 200-200-20 mg/5Ml 30 ml PEG BID 01/26/15 Diazepam [Valium] 5 mg PEG Q4H PRN 01/26/15 Levothyroxine Sodium [Synthroid] 25 mcg PEG DAILY 01/26/15 Lorazepam 2 mg PEG TID PRN 01/26/15 Magnesium Hydroxide [Milk Of Magnesia] 400 mg PEG BEDTIME 01/26/15 Sucralfate Suspension [Carafate Suspension] 1 gm PEG QID 01/26/15 fentaNYL PATCH 50 MCG/HR [Duragesic Patch 50 MCG/HR] 50 mcg TD Q72H 01/26/15 Albuterol Sulfate Nebs [Proventil Nebs] 2.5 mg INH Q2H PRN 04/26/15 Ascorbic Acid [Vitamin C] 500 mg PEG DAILY 04/26/15 Ferrous Sulfate 300 mg PEG DAILY 04/26/15 Valproic Acid Syrup [Depakene Syrup] 5 ml PEG TID 04/26/15 Atropine Sulfate (Ophthalmic) [Atropine Sulfate] 1 % SL Q4H PRN 08/04/16 Chlorhexidine Gluconate (Mouth [Chlorhexidine Gluconate] 0.12 % MT BID 08/04/16 Ipratropium/Albuterol [Duoneb] 3 ml INH Q6H 08/04/16 Multiple Vitamin [Multivitamins] 1 cap PEG DAILY 08/04/16 Promethazine HCl 25 mg PEG Q6H PRN 08/04/16 Cyanocobalamin [Vitamin B-12] 1,000 mcg PEG DAILY 05/27/17 Folic Acid 1 mg PEG DAILY 05/27/17 Metoclopramide HCl [Reglan] 10 mg PEG BID 05/27/17 Omeprazole [PriLOSEC Cap] 20 mg PEG DAILY 05/27/17 Critical Care Note - Critical Care Note Total Time (mins): 80 Comments: ACLS resuscitation attempt
== END 2017-05-28 15:10 | disposition expired ==
LOC: ER 14:05
DX: I46.9 Cardiac arrest, cause unspecified (principal); Z99.11 Dependence on respirator [ventilator] status
CPT/HCPCS: 36600; 71010; 82803; 82805; 92950; 94770; J0282; J7030